=== PATIENT | female | born 1965 | race Caucasian/White ===

== ENCOUNTER → 2020-05-17 17:43 | Outpatient (CLI) | payer MEDICARE, SELFPAY ==
[2020-05-19 13:08] LABS: Hep A Ab, IgM Negative (Negative); Hepatitis B Core Antibody IgM Negative (Negative); Hepatitis B Surface Antigen Negative (Negative)
[2020-05-19 13:11] LABS: Hepatitis C Antibody 0.1 s/co ratio (0.0-0.9)
== END ==
PROVIDERS: Visit Provider Family Medicine
DX: R53.83 Other fatigue (principal)
CPT/HCPCS: 80074

== ENCOUNTER → 2020-06-29 14:20 | Outpatient (CLI) | payer MEDICAID, SELFPAY ==
--- NOTE | 2020-06-29 14:37 | ECG_ITS ---
APPROVED REPORT Exam: Resting ECG HR:66 bpm ECG Measurements Heart Rate 66 AXES VA 120 P 32 QRSd 72 QRS 27 QT 374 T 33 QTc 392 Conclusion Normal sinus rhythm Normal ECG Electronically signed by : Gucci Chery, 07/05/2020 11:39:41
--- NOTE | 2020-06-29 14:40 | XR_ITS ---
PROCEDURE: XR CHEST 2V CLINICAL HISTORY: TOBACCO USER, COUGH COMPARISON: No exams were available for comparison FINDINGS: The cardiomediastinal silhouette and pulmonary vascularity are within normal limits. The lungs are clear without infiltrates, suspicious nodules, or pleural effusions. There is minimal wedge configuration of T6 and T8 which is age indeterminate. Please correlate clinically. IMPRESSION: Minimal wedging of T6 and T8 age indeterminate otherwise negative Dictated by: Mark Queen MD 06/29/2020 14:54 Mark Queen MD in OV 06/29/2020 14:54
[2020-06-29 15:02] LABS: Chloride 104 mmol/L (98-107); Potassium 4.6 mmoL/L (3.5-5.1); Sodium 138 mmol/L (136-145)
[2020-06-29 15:05] LABS: Alanine Aminotransferase 18 U/L (12-78); Albumin Level 4.1 g/dl (3.5-5.0); Albumin/Globulin Ratio 1.4 (1.1-1.8); Alkaline Phosphatase 109 U/L (38-126); Anion Gap 7.6 mEq/L (5-15); Aspartate Amino Transferase 21 U/L (14-36); Bilirubin,Total 0.5 mg/dl (0.2-1.3); Blood Urea Nitrogen 12 mg/dl (7-17); Carbon Dioxide 31 mmol/L (22.0-30.0); Estimated Glomerular Filt Rate 51 ml/min (>60); GFR (African American) 62 ML/MIN (>60); Total Protein,Serum 7.1 g/dl (6.3-8.2)
[2020-06-29 15:06] LABS: Calcium 9.9 mg/dl (8.4-10.2); Glucose 106 mg/dl (74-100)
[2020-06-29 15:08] LABS: Basophils # 0.1 K/mm3 (0-0.2); Basophils % 1.3 % (0.1-2.0); Eosinophils # 0.2 K/mm3 (0.0-0.4); Eosinophils % 3.1 % (0.1-12.0); Hematocrit 51.4 % (37.0-47.0); Hemoglobin 17.2 g/dL (12.2-16.2); Lymphocytes # 1.5 K/mm3 (0.7-4.5); Lymphocytes % 32.1 % (10-50); Mean Corpuscular HGB Conc 33.5 g/dL (31.8-35.4); Mean Corpuscular Hemoglobin 30.1 pg (27.0-31.2); Mean Corpuscular Volume 89.9 fl (81-99); Mean Platelet Volume 7.3 fl (7.4-10.4); Monocytes # 0.2 K/mm3 (0.1-1.0); Monocytes % 4.6 % (1.7-9.3); Neutrophils # 2.8 K/mm3 (1.8-7.8); Neutrophils % 58.9 % (37.0-80.0); Platelet Count 310 K/mm3 (142-424); Red Blood Count 5.72 M/mm3 (4.20-5.40); Red Cell Distribution Width 13.3 % (11.5-17.5); White Blood Count 4.8 K/mm3 (4.8-10.8)
[2020-06-29 16:06] LABS: Coronavirus 19 IgG Antibody Negative (Negative); Coronavirus 19 IgM Antibody Negative (Negative)
== END ==
PROVIDERS: Visit Provider Orthopaedic Surgery
DX: Z01.818 Encounter for other preprocedural examination (principal); M25.512 Pain in left shoulder; M75.112 Incomplete rotator cuff tear or rupture of left shoulder, not specified as traumatic; M75.52 Bursitis of left shoulder; M75.42 Impingement syndrome of left shoulder; M67.912 Unspecified disorder of synovium and tendon, left shoulder; M75.22 Bicipital tendinitis, left shoulder; M19.012 Primary osteoarthritis, left shoulder
CPT/HCPCS: 36415; 71046; 80053; 85025; 86328; 93005

== ENCOUNTER 2020-07-01 07:31 | Day surgery (SDC) | payer MEDICAID, SELFPAY ==
[2020-06-26 11:02] VITALS: BMI 32.4
[2020-07-01] VITALS (11 sets, daily range): BP systolic 120–159; BP diastolic 70–90; PULSE 67–89; RESP 17–18; TEMP 36.1–38; O2SAT 94–99
--- NOTE | 2020-07-01 08:17 | HMH.ANESCL ---
[facility] Anesthesia Checklist - Patient Identification Patient Identification: Arm Band, Verbal (Name & ) - Structural Data Admitted From: Home Planned Operative Procedure/s: l shoulerscope Consent for Planned Operative Procedure(s) Verified: Yes Verified Documents: History and Physical - NPO Status Verified Time NPO: 00:00 - Additional verifications Patient : No Anesthesia Reactions: No Hx Blood Transfusions: No Blood Transfusion Reaction: No Cephalosporin Allergy: No Previous Colonoscopy: No - Cardiovascular Assessment Heart Sounds: S1 & S2 Pulse Strength: Baseline Pulse Rhythm: Regular Peripheral Edema: No - Airway Assessment C-Spine Mobility Assessed: Yes TMJ Mobility Assessed: Yes Dentition: Partials - Neurological Assessment Level of Consciousness: Awake, Alert, Appropriate Hx Seizures: No Numbness or tingling in extremities: No - Anesthesia Plan Anesthesia Risk discussed: Yes Anesthesia Plan: Patient unable to respond/answer ASA Class: III Anesthesia Type: [facility] History I have reviewed the patient's past medical history: Yes Medical History: Reports:: Cancer, Chronic Obstructive Pulmonary Disease (COPD), Gastroesophageal Reflux Disease(GERD) Denies:: Diabetes Mellitus Type 1, Diabetes Mellitus Type 2, Internal Pacemaker, MRSA, Seizures *Have you ever received a pneumonia vaccine?: No *Have you received a flu vaccine this season?: No Other Medical History: Reports: Arthritis. Denies: Blood Transfusion Reaction Anesthesia experience/problems:: ponv Laterality Cases: Bilateral: Tonsillectomy Other Surgeries: Yes: Cancer Surgery (KIDNEY REMOVAL), Cholecystectomy, Hysterectomy-Total. No: Pacemaker Amputation: No Fractures: No - *Social History Last grade of school completed: GED Smoking Status: Current every day smoker Tobacco Type: cigarettes # Packs/Day (cigarettes): 2 Alcohol Intake: never Substance Use Type: denies use *Occupational Status:: unemployed Housing: house Household Members: spouse, family *Travel in the last 8 weeks: None Family Hx:: No significant family history
--- NOTE | 2020-07-01 10:59 | SUR.OPER ---
1059-family updated at this time
[2020-07-01 13:07] LABS: Microscopic,Cath URINE MICROSCOPIC (MICROSCOPIC)
[2020-07-01 13:08] LABS: Appearance,Urine/Cath CLEAR (Clear); Bilirubin,Cath Negative (Negative); Blood, Urine/Cath Negative (Negative); Color,Urine/Cath YELLOW (Yellow); Glucose,Urine/Cath (UA) Negative (Negative); Ketones,Urine/Cath Negative (Negative); Leukocyte Esterase,Cath Negative (Negative); Nitrate,Cath Negative (Negative); PH,Urine/Cath 5.5 (5.0-8.5); Protein,Urine/Cath Negative (Negative); Specific Gravity, Urine/Cath 1.025 (1.005-1.030); Urobilinogen,Cath 0.2 EU/dl (0.2)
--- NOTE | 2020-07-01 14:06 | P.PN_ITS ---
[facility] Anesthesia Record Part I Intake, IV Amount: 1,400 Estimated blood loss (mL): 50 Urine output (mL): 300 Blood Products used (#): none Blood Pressure: 132/73 SaO2: 96 Pulse Rate: 81 Respiratory Rate: 17 Temperature: 97.5 F Patient is:: Awake, Drowsy, Stable Stable to PACU at:: 14:00
[2020-07-01 14:16] LABS: RBC,Urine/Cath Occasional # /hpf (0-3); Squamous Epithelial Ur./Cath Occasional #/hpf (0-5); WBC,Urine/Cath Occasional #/hpf (0-3)
--- NOTE | 2020-07-01 15:37 | HMH.OPNOTE ---
Date of procedure: 07/01/20 Pre-op Diagnosis:: 1. Partial-thickness rotator cuff tear, left shoulder 2. Biceps tendinopathy, left shoulder 3. Subacromial bursitis, left shoulder 4. Subacromial impingement, left shoulder 5. Degenerative labrum and synovitis, left glenohumeral joint 6. Acromioclavicular joint arthritis, left shoulder Post-op Diagnosis:: 1. Rotator cuff tear, left [id number] partial thickness tear of the supraspinatus and infraspinatus. 2. Biceps tendinopathy, left shoulder 3. Subacromial bursitis, left shoulder 4. Subacromial impingement, left shoulder 5. Degenerative arthritis and synovitis, left glenohumeral joint 6. Acromioclavicular joint arthritis, left shoulder Procedure performed:: 1. Arthroscopic rotator cuff repair, left shoulder. 2. Arthroscopic subacromial decompression with subacromial and subdeltoid bursectomy and bony acromioplasty, left shoulder. 3. Arthroscopic glenohumeral joint debridement, extensive, left shoulder. 4. Arthroscopic biceps tenotomy, left shoulder. 5. Arthroscopic distal clavicle excision, left shoulder Surgeon:: Alek Oneil MD Physical Therapy Technician(s):: Deborah Mancini PLASTER WHITTLER:: Tera Martinez Anesthesia: GETA, regional (Interscalene nerve block) Estimated blood loss (mL): 10 Clinical Note:: Patient is a 55-year-old [id number] female with history of pain and disability of her left shoulder for about 2 years. Her symptoms started insidiously and gradually progressed. Her symptoms gradually worsened over the period of time and continued to be troublesome during her daily activities. She had weakness and difficulty with the use of the arm. She localizes the pain to anterior and lateral aspect of the shoulder with radiation into the upper arm but not below the elbow. She also reports occasional radiation up towards the cervical spine and back of the shoulder. She rates her pain a 5 out of 10 at rest and a 7 out of 10 at its worst. She states certain movements including rotations, laying on the left side, over head reaching and lifting aggravates her pain. She reports sleep disturbance secondary to shoulder pain. She also reports some shoulder stiffness and weakness. She was previously seen by her pain management physician, Dr. Kim, as well as by orthopedic surgeon, Dr Flores at [facility]. She says she had about 4 local steroid injections in total over the last year the last one being about couple of months ago. She reports very little improvement with her her symptoms following these injections. She also did physical therapy on 2 separate occasions again without significant relief. She has also tried rest, icing, NSAIDs and pain medication without significant pain relief. She has history of chronic back pain and is on long-term pain medication from a pain clinic in [place]. She takes hydrocodone/acetaminophen 5/325 1 tablet 4 times a day, gabapentin 400 mg 3 times a day and cyclobenzaprine 10 mg 3 times a day. She had a left nephrectomy about 10 years ago for cancer. She does not have any metastasis or recurrence. She is a chronic smoker for over 30 years, and smokes about 1 and half packs a day. She does not work secondary to disability and has history of COPD and GERD. She is not a known diabetic. Preoperative evaluation was consistent with the above mentioned diagnosis. Her shoulder MRI scan performed at an outside facility showed- 1. Multifocal partial-thickness tearing of the superior rotator cuff, which most notably includes a 1.5 x 1 cm low to moderate grade tear extending from the conjoined segment to the mid infraspinatus tendon. No high-grade partial/full-thickness retracted tear. 2. Mild glenohumeral and AC joint osteoarthritis. 3. Mild subacromial/subdeltoid bursitis. After discussion of the risks and benefits of the surgical versus nonsurgical management, he elected to proceed with surgical remediation. Please refer to my office note for full details. Operative fi
--- NOTE | 2020-07-02 13:46 | P.PN_ITS ---
[facility] Anesthesia Record Part II Discharge Time: 14:30 Destination: Surgical Day Care (OP Surgery) PACU nurse assessment reviewed?: Yes Patient Condition:: Good Anesthesia Complications:: None Swallowing reflex intact?: Yes Cyanosis?: No Blood Pressure: 159/85 Pulse Rate: 86 Temperature: 97.5 F Mental Status: Alert & Oriented Pain level:: 0 Nausea and/or vomitting:: None Intake, IV Amount: 0
[2020-07-02 13:48] VITALS: BP 159/85; PULSE 86; TEMP 36.4
== END 2020-07-01 15:16 | disposition home or self-care (01) ==
LOC: OR 07:33
PROVIDERS: PCP Family Medicine; Visit Provider Orthopaedic Surgery
PROC: (CPT 29805; principal; 2020-07-01 09:00)
DX: M75.112 Incomplete rotator cuff tear or rupture of left shoulder, not specified as traumatic (principal); M75.52 Bursitis of left shoulder; M75.22 Bicipital tendinitis, left shoulder; M75.42 Impingement syndrome of left shoulder; M19.012 Primary osteoarthritis, left shoulder; Z72.0 Tobacco use; J44.9 Chronic obstructive pulmonary disease, unspecified; Z85.528 Personal history of other malignant neoplasm of kidney; Z90.5 Acquired absence of kidney
CPT/HCPCS: 29827; 29828; 29826; 81001; 96374; C1713; J2405

== ENCOUNTER → 2021-12-24 12:55 | Outpatient (CLI) | payer MEDICAID, SELFPAY ==
--- NOTE | 2021-12-24 13:05 | XR_ITS ---
FINAL REPORT CLINICAL HISTORY: shoulder pain FINDINGS: RIGHT SHOULDER Three views demonstrate no acute fracture or dislocation. There are mild degenerative changes of the acromioclavicular joint. The visualized bony structures are well aligned. No soft tissue abnormality is seen. IMPRESSION: Mild degenerative change of the acromioclavicular joint. Reviewed, Interpreted and Dictated by Brenton Alvares III, MD Transcribed by Lia Mulligan Authenticated by Brenton Alvares III, MD on 12/24/2021 03:26:33 PM [facility]
== END ==
PROVIDERS: PCP Family Medicine; Visit Provider Orthopaedic Surgery
DX: M25.511 Pain in right shoulder (principal)
CPT/HCPCS: 73030

== ENCOUNTER → 2022-02-20 09:48 | Outpatient (CLI) | payer MEDICAID, SELFPAY ==
--- NOTE | 2022-02-20 09:48 | CT_ITS ---
FINAL REPORT TECHNIQUE: Thin section axial CT with IV contrast supplemented with multiplanar reconstruction under CT angiogram protocol. 3-D reconstructions were performed. This study was performed with techniques to keep radiation doses as low as reasonably achievable (ALARA). Individualized dose reduction techniques using automated exposure control or adjustment of mA and/or kV according to the patient''s size were employed. CLINICAL HISTORY: heaadache, mood swings, pt has had kidney cancer, pt states on scan years ago had tumor on pituitary and aneurysm?? FINDINGS: The distal vertebral, basilar and distal internal carotid arteries have an unremarkable appearance. No aneurysm is seen. Major intracranial vessels are patent without significant stenosis. IMPRESSION: No evidence of aneurysm. Reviewed, Interpreted and Dictated by Brenton Alvares III, MD Transcribed by Kirstin Esteves Authenticated and [facility]
[2022-02-20 10:11] LABS: Blood Urea Nitrogen 13 mg/dl (7-17); Estimated Glomerular Filt Rate 51 ml/min (>60); GFR (African American) 62 ML/MIN (>60)
== END ==
PROVIDERS: PCP Family Medicine; Visit Provider Family Medicine
DX: R51.9 Headache, unspecified (principal); G89.29 Other chronic pain; I72.9 Aneurysm of unspecified site
CPT/HCPCS: 36415; 70496; 82565; 84520; Q9967

== ENCOUNTER → 2023-04-09 23:16 | Outpatient (CLI) | payer MEDICAID, SELFPAY ==
[2023-04-09 18:31] LABS: Basophils % 0.5 % (0.1-2.0); Eosinophils # 0.2 K/mm3 (0.0-0.4); Hematocrit 40.8 % (37.0-47.0); Hemoglobin 13.1 g/dL (12.2-16.2); Lymphocytes # 2.3 K/mm3 (0.7-4.5); Lymphocytes % 31.7 % (10-50); Mean Corpuscular HGB Conc 32.1 g/dL (31.8-35.4); Mean Corpuscular Hemoglobin 25.1 pg (27.0-31.2); Mean Corpuscular Volume 78.1 fl (81-99); Mean Platelet Volume 8.4 fl (7.4-10.4); Monocytes # 0.4 K/mm3 (0.1-1.0); Monocytes % 4.8 % (1.7-9.3); Neutrophils # 4.4 K/mm3 (1.8-7.8); Neutrophils % 60.9 % (37.0-80.0); Platelet Count 351 K/mm3 (142-424); Red Blood Count 5.22 M/mm3 (4.20-5.40); Red Cell Distribution Width 17.4 % (11.5-17.5); White Blood Count 7.2 K/mm3 (4.8-10.8)
[2023-04-09 19:04] LABS: Alanine Aminotransferase 22 U/L (12-78); Albumin Level 3.9 g/dl (3.5-5.0); Albumin/Globulin Ratio 1.3 (1.1-1.8); Alkaline Phosphatase 154 U/L (38-126); Aspartate Amino Transferase 24 U/L (14-36); Bilirubin,Total 0.2 mg/dl (0.2-1.3); Blood Urea Nitrogen 9 mg/dl (7-17); Calcium 9.3 mg/dl (8.4-10.2); Carbon Dioxide 25 mmol/L (22.0-30.0); Chloride 104 mmol/L (98-107); Chol/HDL Ratio 5.7 (1-3.5); Cholesterol 206 mg/dl (140-200); Estimated Glomerular Filt Rate 57 ml/min (>60); GFR (African American) 69 ML/MIN (>60); Globulin 2.9 g/dL (1.3-3.2); Glucose 129 mg/dl (74-100); HDL Cholesterol 36 mg/dl (40-60); Sodium 138 mmol/L (136-145); Total Protein,Serum 6.8 g/dl (6.3-8.2); Triglycerides 225 mg/dl (30-150); VLDL Cholesterol 45 mg/dL (0-40)
[2023-04-09 19:15] LABS: Direct LDL Cholesterol 128.63 mg/dL (100-129)
[2023-04-09 20:15] LABS: Iron 38 ug/dL (37-170)
[2023-04-09 20:40] LABS: Total Iron Binding Capacity 414 ug/dL (265-497)
[2023-04-09 20:47] LABS: Thyroid Stimulating Hormone 0.95 uIU/mL (0.465-4.68)
[2023-04-19 20:02] LABS: 1,25 Dihydroxy Vitamin D 41 pg/mL (.); 1,25-Dihydroxy, Vitamin D-2 <10 pg/mL (.); 1,25-Dihydroxy, Vitamin D-3 31 pg/mL (.)
== END ==
PROVIDERS: PCP Family Medicine; Visit Provider Family Medicine
DX: M54.2 Cervicalgia (principal); E61.1 Iron deficiency; E66.9 Obesity, unspecified; Z68.35 Body mass index [BMI] 35.0-35.9, adult; Z79.899 Other long term (current) drug therapy
CPT/HCPCS: 80053; 80061; 82652; 83036; 83540; 83550; 84443; 85025

== ENCOUNTER → 2023-05-21 14:30 | Outpatient (CLI) | payer MEDICAID, SELFPAY ==
[2023-05-21 18:34] LABS: Thyroid Stimulating Hormone 0.63 uIU/mL (0.465-4.68)
[2023-05-21 18:53] LABS: Vitamin B12 346 pg/mL (239-931)
[2023-05-31 15:58] LABS: 1,25 Dihydroxy Vitamin D 36 pg/mL (.); 1,25-Dihydroxy, Vitamin D-2 <10 pg/mL (.); 1,25-Dihydroxy, Vitamin D-3 36 pg/mL (.)
== END ==
PROVIDERS: PCP Family Medicine; Visit Provider Family Medicine
DX: H35.30 Unspecified macular degeneration (principal); E66.9 Obesity, unspecified; Z68.36 Body mass index [BMI] 36.0-36.9, adult; Z79.899 Other long term (current) drug therapy
CPT/HCPCS: 82607; 82652; 84443

== ENCOUNTER → 2023-06-07 10:48 | Outpatient (CLI) | payer MEDICAID, SELFPAY ==
--- NOTE | 2023-06-07 10:49 | MR_ITS ---
FINAL REPORT CLINICAL HISTORY: Loss of balance 19ML PROHANCE COMPARISON: None FINDINGS: Multiplanar MR imaging of the brain was performed without and with contrast. There is motion on many sequences which somewhat limits overall image quality. There is mild age-appropriate atrophy. Scattered foci of increased T2 signal are seen in the cerebral white matter that have a nonspecific appearance but likely represent mild chronic ischemic/gliotic changes. There is no evidence of intracranial hemorrhage or mass. No abnormal ventricular dilatation is identified. There is no evidence of shift of the midline structures. No abnormal extra-axial fluid collection is seen. No area of abnormal restricted diffusion is identified. The posterior fossa and brainstem have an unremarkable appearance. No abnormal contrast enhancement is seen. Normal major vessel vascular flow voids are seen. IMPRESSION: Mild atrophy and chronic ischemic/gliotic changes. No acute intracranial abnormality. Reviewed, Interpreted and Dictated by Brenton Alvares III, MD Transcribed by Moraima Bah Authenticated and . [facility]
[2023-06-07 11:35] LABS: Blood Urea Nitrogen 7 mg/dl (7-17); Estimated Glomerular Filt Rate 57 ml/min (>60); GFR (African American) 69 ML/MIN (>60)
== END ==
PROVIDERS: PCP Family Medicine; Visit Provider Family Medicine
DX: R26.89 Other abnormalities of gait and mobility (principal)
CPT/HCPCS: 36415; 70553; 82565; 84520; A9576

== ENCOUNTER → 2023-07-28 23:54 | Outpatient (CLI) | payer MEDICAID, SELFPAY ==
[2023-07-28 18:42] LABS: Basophils # 0.1 K/mm3 (0-0.2); Basophils % 0.9 % (0.1-2.0); Eosinophils # 0.2 K/mm3 (0.0-0.4); Eosinophils % 2.5 % (0.1-12.0); Hematocrit 44.4 % (37.0-47.0); Hemoglobin 14.4 g/dL (12.2-16.2); Lymphocytes # 2.3 K/mm3 (0.7-4.5); Lymphocytes % 32.6 % (10-50); Mean Corpuscular HGB Conc 32.5 g/dL (31.8-35.4); Mean Corpuscular Hemoglobin 29.1 pg (27.0-31.2); Mean Corpuscular Volume 89.6 fl (81-99); Mean Platelet Volume 8.6 fl (7.4-10.4); Monocytes # 0.4 K/mm3 (0.1-1.0); Monocytes % 5.4 % (1.7-9.3); Neutrophils # 4.1 K/mm3 (1.8-7.8); Neutrophils % 58.6 % (37.0-80.0); Platelet Count 356 K/mm3 (142-424); Red Blood Count 4.95 M/mm3 (4.20-5.40); Red Cell Distribution Width 16.1 % (11.5-17.5)
[2023-07-28 19:01] LABS: Uric Acid 3.3 mg/dl (2.5-6.2)
[2023-07-28 19:31] LABS: Erythrocyte Sedimentation Rate 15 mm/hr (0-30)
[2023-07-28 21:45] LABS: Alanine Aminotransferase 28 U/L (12-78); Albumin Level 4.1 g/dl (3.5-5.0); Albumin/Globulin Ratio 1.3 (1.1-1.8); Alkaline Phosphatase 221 U/L (38-126); Anion Gap 12.1 mEq/L (5-15); Aspartate Amino Transferase 32 U/L (14-36); Bilirubin,Total 0.4 mg/dl (0.2-1.3); Blood Urea Nitrogen 7 mg/dl (7-17); Carbon Dioxide 25 mmol/L (22.0-30.0); Chloride 103 mmol/L (98-107); Estimated Glomerular Filt Rate 57 ml/min (>60); GFR (African American) 69 ML/MIN (>60); Globulin 3.1 g/dL (1.3-3.2); Glucose 100 mg/dl (74-100); Potassium 4.1 mmoL/L (3.5-5.1); Sodium 136 mmol/L (136-145); Total Protein,Serum 7.2 g/dl (6.3-8.2)
[2023-07-30 14:10] LABS: RA Latex Turbid. 17.9 IU/mL (<14.0)
[2023-08-02 08:17] LABS: Antinuclear Antibodies, IFA Negative (.)
== END ==
PROVIDERS: PCP Family Medicine; Visit Provider Family Medicine
DX: R53.1 Weakness (principal); Z90.5 Acquired absence of kidney
CPT/HCPCS: 80053; 84550; 85025; 85651; 86038; 86431

== ENCOUNTER → 2023-08-13 08:57 | Outpatient (CLI) | payer MEDICAID, SELFPAY ==
[2023-08-13 18:38] LABS: Barbiturates Screen,Urine Negative ng/ml (<200)
[2023-08-13 18:39] LABS: Amphetamine/Metha Screen,Urine Negative ng/ml (<1000)
[2023-08-13 18:40] LABS: Benzodiazepines Screen,Urine Positive ng/ml (<200); Cannabinoid Screen,Urine Negative ng/ml (<50)
[2023-08-13 18:41] LABS: Cocaine Screen,Urine Negative ng/ml (<300); Methadone Screen,Urine Negative ng/ml (<300)
[2023-08-13 18:42] LABS: Opiate Screen,Urine Negative ng/ml (<300)
[2023-08-13 18:43] LABS: Phencyclidine Screen,Urine Negative ng/ml (<25)
== END ==
PROVIDERS: PCP Family Medicine; Visit Provider Family Medicine
DX: Z79.899 Other long term (current) drug therapy (principal)
CPT/HCPCS: 80305

== ENCOUNTER → 2023-08-16 09:20 | Outpatient (CLI) | payer MEDICAID, SELFPAY ==
--- NOTE | 2023-08-16 09:20 | CT_ITS ---
FINAL REPORT TECHNIQUE: Postcontrast axial images of the chest were performed in a CTA protocol. This study was performed with techniques to keep radiation doses as low as reasonably achievable, (ALARA). Individualized dose reduction technique using automated exposure control or adjustment of mA and/or kV according to the patient's size were employed. CLINICAL HISTORY: Syncope, evaluate aortic arch, left subclavian and vertebral. FINDINGS: Thyroid is homogeneous. The heart is normal in size. No adenopathy is identified. No pleural or pericardial effusion is identified. The thoracic aorta is normal in caliber with no focal aneurysm or dissection identified. Aortic arch is normal in caliber. There is no filling defect to suggest pulmonary embolism. No lung infiltrate or mass is identified. The left kidney is not identified and is likely surgically absent. Limited imaging of the upper abdomen demonstrates a small, indeterminate nodule in the left adrenal gland measuring 7 mm. IMPRESSION: No evidence for PE, aneurysm or dissection. Indeterminate 7 mm left adrenal nodule. Reviewed, Interpreted and Dictated by Elpidio Posada MD Transcribed by Nell Perrin Authenticated and [facility]
== END ==
PROVIDERS: PCP Family Medicine; Visit Provider Family Medicine
DX: G45.8 Other transient cerebral ischemic attacks and related syndromes (principal); R55 Syncope and collapse
CPT/HCPCS: 71275; Q9967

== ENCOUNTER 2024-03-06 10:28 | Outpatient (CLI) | payer MEDICAID, SELFPAY ==
[2024-03-06 20:03] LABS: Basophils # 0.1 K/mm3 (0-0.2); Eosinophils # 0.1 K/mm3 (0.0-0.4); Eosinophils % 1.9 % (0.1-12.0); Hemoglobin 14.8 g/dL (12.2-16.2); Lymphocytes # 2.3 K/mm3 (0.7-4.5); Lymphocytes % 33.1 % (10-50); Mean Corpuscular HGB Conc 32.8 g/dL (31.8-35.4); Mean Corpuscular Hemoglobin 29.7 pg (27.0-31.2); Mean Corpuscular Volume 90.7 fl (81-99); Mean Platelet Volume 8.2 fl (7.4-10.4); Monocytes # 0.4 K/mm3 (0.1-1.0); Monocytes % 5.1 % (1.7-9.3); Neutrophils # 4.2 K/mm3 (1.8-7.8); Neutrophils % 58.9 % (37.0-80.0); Platelet Count 325 K/mm3 (142-424); Red Blood Count 4.96 M/mm3 (4.20-5.40); White Blood Count 7.1 K/mm3 (4.8-10.8)
[2024-03-06 20:37] LABS: Hemoglobin A1C 5.8 % (4.0-6.0)
[2024-03-06 20:38] LABS: Alanine Aminotransferase 21 U/L (12-78); Albumin Level 3.7 g/dl (3.5-5.0); Albumin/Globulin Ratio 1.2 (1.1-1.8); Alkaline Phosphatase 176 U/L (38-126); Anion Gap 10.9 mEq/L (5-15); Aspartate Amino Transferase 27 U/L (14-36); Bilirubin,Total 0.5 mg/dl (0.2-1.3); Blood Urea Nitrogen 11 mg/dl (7-17); Calcium 9.4 mg/dl (8.4-10.2); Carbon Dioxide 29 mmol/L (22.0-30.0); Chloride 99 mmol/L (98-107); Estimated Glomerular Filt Rate 51 ml/min (>60); GFR (African American) 62 ML/MIN (>60); Globulin 3.1 g/dL (1.3-3.2); Glucose 97 mg/dl (74-100); Potassium 3.9 mmoL/L (3.5-5.1); Sodium 135 mmol/L (136-145); Total Protein,Serum 6.8 g/dl (6.3-8.2)
[2024-03-06 20:55] LABS: T4 (Thyroxine) 13.1 ug/dl (5.53-11.0)
[2024-03-06 21:09] LABS: Thyroid Stimulating Hormone 0.08 uIU/mL (0.465-4.68)
== END 2024-03-06 23:59 | disposition home or self-care (01) ==
LOC: LAB.DROPOF 03-07 10:29
PROVIDERS: PCP Family Medicine; Visit Provider Family Medicine
DX: R53.83 Other fatigue (principal); E11.9 Type 2 diabetes mellitus without complications; Z13.29 Encounter for screening for other suspected endocrine disorder
CPT/HCPCS: 80050; 80053; 83036; 84436; 84443; 85025

== ENCOUNTER 2024-04-18 07:58 | Outpatient (CLI) | payer MEDICAID, SELFPAY ==
--- NOTE | 2024-04-18 07:58 | US_ITS ---
FINAL REPORT CLINICAL HISTORY: thyroid nodule FINDINGS: Sonographic images of the thyroid gland were obtained. The right thyroid lobe measures 43 mm. in length. The left thyroid lobe measures 45 mm. in length. The thyroid isthmus measures 5 mm. The echogenicity is normal. Multiple bilateral thyroid nodules are seen. The 2 largest nodules are seen in the left thyroid lobe measuring up to 15 mm each. They are cystic and solid and hypoechoic, consistent with TI-RADS 3 nodules. Multiple other smaller nodules are seen bilaterally. IMPRESSION: Multiple bilateral thyroid nodules as described measuring up to 15 mm. Based upon TI-RADS criteria, no biopsy is indicated at this time. Recommend follow-up ultrasound in 6-12 months to evaluate for stability. Authenticated and [facility]
[2024-04-18 10:34] LABS: Free T4 (Free Thyroxine) 1.41 ng/dl (0.78-2.19)
[2024-04-18 10:50] LABS: Thyroid Stimulating Hormone 0.52 uIU/mL (0.465-4.68)
[2024-04-19 10:14] LABS: Thyroid Peroxidase Antibodies <9 IU/mL (0-34)
== END 2024-04-18 23:59 | disposition home or self-care (01) ==
LOC: RAD 07:58
PROVIDERS: PCP Family Medicine; Visit Provider Nurse Practitioner
DX: E04.1 Nontoxic single thyroid nodule (principal)
CPT/HCPCS: 36415; 76536; 84439; 84443; 86376

== ENCOUNTER 2024-11-01 14:41 | Outpatient (CLI) | payer MEDICAID, MEDICARE, SELFPAY ==
[2024-11-01 20:56] LABS: HIV Combo NEGATIVE (Negative)
[2024-11-01 21:20] LABS: Hepatitis C Ab Qual. W/ RFX NEGATIVE (Negative)
== END 2024-11-01 23:59 | disposition home or self-care (01) ==
LOC: LAB.DROPOF 11-02 15:27
PROVIDERS: PCP Family Medicine; Visit Provider Family Medicine
DX: Z11.59 Encounter for screening for other viral diseases (principal)
CPT/HCPCS: 86803; 87389

== ENCOUNTER 2024-11-27 10:09 | Outpatient (CLI) | payer MEDICARE, SELFPAY ==
--- NOTE | 2024-11-27 10:09 | CT_ITS ---
FINAL REPORT TECHNIQUE: Thin section axial images were obtained from the thoracic inlet through the upper abdomen after intravenous contrast injection. Reconstruction images were obtained from the axial data. Exam was performed using dose reduction technique. This study was performed with techniques to keep radiation doses as low as reasonably achievable (ALARA). Individualized dose reduction techniques using automated exposure control or adjustment of mA and/or kV according to the patient's size were employed. CLINICAL HISTORY: Blood Clot COMPARISON: 08/16/2023 FINDINGS: Note is made of small bilateral thyroid nodules which are stable when compared to the prior exam. There is no hilar or axillary lymphadenopathy. There is mild prominence of right paratracheal and AP window nodes, stable. There is no pleural or pericardial effusion. There is a tiny left lower lobe subpleural nodule best seen on image #64, stable. There are new ground glass and airspace opacities in the superior segment of the left lower lobe and the anterior segment of the left upper lobe, which may be infectious or inflammatory. No acute osseous abnormality. IMPRESSION: New ground glass and airspace opacities in the superior segment of the left lower lobe and anterior left upper lobe, infectious or inflammatory. Reviewed, Interpreted and Dictated by Yadira Knutson MD Transcribed by Moraima Bah Authenticated and [facility]
--- NOTE | 2024-11-27 10:09 | US_ITS ---
FINAL REPORT TECHNIQUE: Sonographic images of the thyroid gland were obtained in the longitudinal and transverse planes. CLINICAL HISTORY: F/U Thyroid Nodule COMPARISON: 05/05/2024 FINDINGS: The right lobe measures 15 x 50 x 21 mm. The right lobe is homogeneous. Several tiny colloid cyst on the right. Previously seen 6 mm hypoechoic nodule is not visualized on this exam. The left lobe measures 21 x 55 x 23 mm. The left lobe is homogeneous. 2 mixed cystic and solid nodules not significantly changed in size given differences in technique. Largest measures 17 mm, TR 3. There is also an isoechoic 10 mm nodule which is unchanged. Several additional subcentimeter hypoechoic nodules are stable. The isthmus measures 5 mm. This is normal. IMPRESSION: Stable TR 3 left thyroid nodules. Continued follow-up recommended per TI-RADS criteria. Additional nodules not significantly changed or not identified on today's exam. Reviewed, Interpreted and Dictated by Yadira Knutson MD Transcribed by Deborah Fung Authenticated and . [facility]
--- NOTE | 2024-11-27 10:09 | CT_ITS ---
FINAL REPORT TECHNIQUE: Thin section axial images are obtained through the abdomen and pelvis after intravenous contrast. Reconstruction images were obtained from the axial data. Exam was performed using dose reduction techniques. This study was performed with techniques to keep radiation doses as low as reasonably achievable (ALARA). Individualized dose reduction techniques using automated exposure control or adjustment of mA and/or kV according to the patient's size were employed. CLINICAL HISTORY: Abdominal Pain COMPARISON: None FINDINGS: LIVER: There are multiple small hypodense liver lesions present, that likely represent hepatic cysts. GALLBLADDER/BILIARY SYSTEM: The gallbladder is surgically absent. No biliary dilatation. SPLEEN: Unremarkable. PANCREAS: Unremarkable. ADRENALS: Bilateral adrenal nodules are identified, on the right measuring 10 mm in size and on the left 14 mm. These are not adenomatous by strict criteria. KIDNEYS/URETERS/BLADDER: There is mild right hydronephrosis without hydroureter or an obstructing stone seen. No renal masses seen in the right kidney. The left kidney is either absent or extremely atrophic. There is mild wall thickening of the bladder, that may represent cystitis. GI TRACT: A small hiatal hernia is present. No small bowel obstruction or dilatation. The appendix is not visualized, however there are no secondary signs of inflammatory change. There are mild fluid filled small bowel levels with mild wall thickening proximally, with a small amount of fluid in the distal proximal colon that may represent mild changes of enterocolitis. PELVIC ORGANS: Unremarkable for age. LYMPH NODES/RETROPERITONEUM/MESENTERY: No lymphadenopathy. No abdominal aortic aneurysm. ABDOMINAL WALL: The abdominal wall is intact. FREE FLUID: No ascites. BONES: No acute osseous abnormality. IMPRESSION: Mild right hydronephrosis without hydroureter or obstructing stone. Mild wall thickening of the bladder that may represent cystitis. Fluid-filled small bowel with mild wall thickening in the proximal small bowel, as well as mild fluid in the distal proximal colon, that may represent mild changes of enterocolitis. Reviewed, Interpreted and Dictated by Yadira Knutson MD Transcribed by Moraima Bah Authenticated and [facility]
[2024-11-27 11:03] LABS: Blood Urea Nitrogen 12 mg/dl (7-17); Estimated Glomerular Filt Rate 46 ml/min (>60); GFR (African American) 55 ML/MIN (>60)
[2024-11-27] MEDS: SODIUM CHLORIDE 0.9% 10ML SYR (RAD ONLY) 10 ML IV (11:24)
[2024-11-27] MEDS: IOPAMIDOL-370 (76%);100ML BOTTLE 75 ML IV (11:24)
== END 2024-11-27 23:59 | disposition home or self-care (01) ==
LOC: RAD 10:09
PROVIDERS: PCP Family Medicine; Visit Provider Family Medicine
DX: E04.1 Nontoxic single thyroid nodule (principal); R10.9 Unspecified abdominal pain; N13.30 Unspecified hydronephrosis; Z86.718 Personal history of other venous thrombosis and embolism
CPT/HCPCS: 36415; 71260; 74177; 76536; 82565; 84520; Q9967

== ENCOUNTER 2025-01-31 20:56 | Outpatient (CLI) | payer MEDICARE, SELFPAY ==
[2025-01-31 22:25] LABS: Microscopic, Urine URINE MICROSCOPIC (MICROSCOPIC)
[2025-01-31 22:39] LABS: Appearance,Urine CLEAR (Clear); Bilirubin,Urine Negative (Negative); Blood, Urine Negative (Negative); Color,Urine YELLOW (Yellow); Glucose,Urine (UA) Negative (Negative); Ketones,Urine Negative (Negative); Leukocyte Esterase,Urine Negative (Negative); Nitrate,Urine Negative (Negative); Protein,Urine Negative (Negative); Specific Gravity, Urine 1.025 (1.005-1.030); Urobilinogen,Urine 0.2 EU/dl (0.2)
[2025-01-31 22:56] LABS: Bacteria,Urine 2+ /lpf; Yeast,Urine Occasional /lpf
== END 2025-01-31 23:59 | disposition home or self-care (01) ==
LOC: LAB.DROPOF 20:57
PROVIDERS: PCP Family Medicine; Visit Provider Family Medicine
DX: R31.9 Hematuria, unspecified (principal)
CPT/HCPCS: 81001; 87086

== ENCOUNTER 2025-06-27 19:30 | Outpatient (CLI) | payer MEDICARE, SELFPAY ==
--- NOTE | 2025-06-27 19:31 | XR_ITS ---
PROCEDURE INFORMATION: Exam: XR Left Ankle Exam date and time: 06/27/2025 7:25 PM Age: 60 years old Clinical indication: Pain and injury or trauma; Fall; Blunt trauma; Ankle; Left; Additional info: Lt ankle injury TECHNIQUE: Imaging protocol: Radiologic exam of the left ankle. Views: 1 or 2 views. COMPARISON: No relevant prior studies available. FINDINGS: Bones/joints: Cortical irregularity at the lateral margin of the talus may represent undisplaced fracture. Soft tissues: Moderate soft tissue swelling of the ankle. IMPRESSION: Cortical irregularity at the lateral margin of the talus may represent undisplaced fracture.
--- OUTSIDE RECORDS SUMMARY | 2025-06-27 19:33 | XMS_ITS | Clinical Summary ---
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 Name Role Phone Savita Mackey [phone] Conditions or Problems Problem Name Problem Code Onset Date Status Entry Date Provider Comment Standard Description Annotate Take Note of LEG PAIN 25371264 (SNOMED CT) Active Elzbieta Yosemite Pain in lower limb NEOP, BNG, PITUITARY GLAND D35.2 (ICD-10-CM) Active Elzbieta Titus Benign neoplasm of pituitary gland ANEURYSM 268299051 (SNOMED CT) Active Elzbieta Titus Aneurysm History of KIDNEY CANCER- LEFT KIDNEY REMOVED 07/08/10 C64.9 (ICD-10-CM) Active Elzbieta Titus Malignant neoplasm of unspecified kidney, except renal pelvis Take Note of TOBACCO USER 471397247 (SNOMED CT) Active Elzbieta Titus Tobacco user Take Note of PARESTHESIA 94044847 (SNOMED CT) Active Elzbieta Yosemite Paresthesia Take Note of TINNITUS 09741150 (SNOMED CT) Active Elzbieta Titus Tinnitus Take Note of HEADACHE 07958576 (SNOMED CT) Active Elzbieta Titus Headache Take Note of WEIGHT GAIN 495333343 (SNOMED CT) Active Elzbieta Yosemite Abnormal weight gain Medications Medication Instructions Start Date Stop Date Generic Name NDC Provider VALIUM 5 MG TABS take one tablet by mouth 1 hour prior to scan and take the other if needed right before scan DIAZEPAM [id number] Nikolas Martinez MD VICODIN ES 7.5-750 MG TABS 1/2 tab prn pain HYDROCODONE -ACETAMINOP HEN [id number] Elzbieta Qureshi WARFARIN SODIUM 4 MG TABS 1 tab daily WARFARIN SODIUM [id number] Elzbieta Qureshi Medications Administered No information available. Allergies, Adverse Reactions, Alerts Allergy Name Reaction Description Start Date Severity Statu s Provider ERYTHROMYCIN BASE rash, nausea Critical Elzbieta Titus Results No information available. Plan of Care Type Date Detail Pending order MRI Pituitary Pr otocol w/ & w/o Contrast Pending order MRI Pituitary Pr otocol w/ & w/o Contrast Pending order MRA Brain Pending order MRI Pituitary Pr otocol w/ & w/o Contrast Pending order LH Pending order ACTH Pending order IGF-1 Pending order Prolactin level Pending order Cortisol 8 AM Pending order FSH Pending order Estradiol Pending order Free T4 Pending order TSH Pending order Growth Hormone Procedures No information available. Vital Signs Date Name Value Unit Description BMI (Body Mass Index) 26.92 kg/m2 Bod y Mass Index (Ratio) BP Diastolic 74 mm[Hg] blood pressu re, diastolic BP Systolic 122 mm[Hg] blood pressur e, systolic Height 63 [in_us] height E&M Weight Measured 152 [lb_av] weight E& M Weight Measured 152 [lb_av] weight E& M Heart Rate 77 /min pulse rate Immunizations No information available. Advance Directives No information available.
--- OUTSIDE RECORDS SUMMARY | 2025-06-27 19:34 | XMS_ITS | Data Portability ---
Author Organization [place] [facility] Address [address] [place] [address] Care Team Providers Care Diamond Cleaver Name Role Phone VERONICALALITHA Saravia Primary Care Provider Assessment Encounter Date Assessment Date Assessment LastModified by Organization Details LastModified Time 08/17/2023 08/17/2023 We are still waiting on the echocardiogram and Myoview. These are being performed next week. The Plan: -Continue other current medications. -Continue aggressive risk factor modification. -Recommend LDL less than 100. -Encouraged regular exercise and activity. Patient Education was printed, I have reviewed the Past Medical, Family, and Social Histories along with ROS and all orders in today's record, and have noted any changes. - Medications, charts and records reviewed in full today. EKG 07/05/23 normal sinus rhythm with nonspecific ST and T-wave changes anterior LAST ECHO: 09/27/2018 Ejection Fraction 60 65%. There is mild LVH. Otherwise normal echo LAST ISCHEMIC EVAL: August 09, 2023 showed ischemia to a moderate portion of the lateral baltazar. This is a high risk Myoview -echo denied by insurance LAST HEART CATH: 11/08/2018 [facility]. Normal coronary arteries. No stents placed last LDL cholesterol 06/2023 was 129 with a normal creatinine at 1.0 CELENA: 06/28/2019 normal study LAST CNI: 07/19/2023 no significant stenosis of either ICA. Nonvisualization of the left subclavian artery and left vertebral artery therefore the patency is in question. 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 -patient has been experiencing class 3 to class 4 angina. She also has some left arm pain. Risks and benefits of left heart catheterization and left subclavian angiography were discussed in full today. These include, but are not limited to, injury to blood vessels, fistula, pseudoaneurysm, stroke, distal embolization, myocardial infarction, infection and . Patient states understanding of risks and has agreed to proceed with angiographic evaluation. -typical angina -worsening angina -suspected coronary artery disease -new onset angina less than 2 months -pending lipid profile -AV aubrey reentry tachycardia -frailty score 4 -high risk Myoview -class 3 to class 4 angina -not on maximal medical therapy -follow-up in 2 weeks This note was dictated using MyoKardia software. If something is unclear, or does not make sense, please do not hesitate to contact our office at [phone] for clarification. [email or web address] Not available 08/17/2023 15:37:01 09/02/2023 09/02/2023 Patient has studies that were concerning for progression of coronary disease as well as subclavian artery stenosis. These tests were obviously a false positive as her coronaries are normal and her subclavian artery is normal. Blood pressure and heart rate are under good control. The echocardiogram was denied. We can hold off on this for now. Her cardiac catheterization showed normal function and normal coronary arteries with normal left subclavian artery. We will continue the same medical regimen. Meds and chart reviewed in full today. Blood pressure and heart rate look great. Her blood work looked good. Follow-up in 10-12 weeks. No changes in the medical regimen Groin well healed from cardiac catheterization. Continue metoprolol Monitor blood pressure and heart rate Blood work as per primary care Follow-up in Cardiology Clinic in 10-12 weeks Plan: -Continue other current medications. -Continue aggressive risk factor modification. -Recommend LDL less than 100. -Encouraged regular exercise and activity. Patient Education was printed, I have reviewed the Past Medical, Family, and Social Histories along with ROS and all orders in today's record, and have noted any changes. Medications, charts and records reviewed in full today. EKG 07/05/23 normal sinus rhythm with nonspecific ST and T-wave changes anterior LAST ECHO: -echo denied by insurance LAST ISCHEMIC EVAL: August 09, 2023 showed ischemia to a moderate portion of the lateral baltazar. This is a high risk Myoview LAST HEART CATH: 08/24/2023 [facility]. Normal coronary arteries. No stents placed last LDL cholesterol 06/2023 was 129 with a normal creatinine at 1.0 CELENA: 06/28/2019 normal study LAST CNI: 07/19/2023 no significant stenosis of either ICA. Nonvisualization of the left subclavian artery and left vertebral artery therefore the patency is in question. 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 IOfelia CMA, am scribing for, and in the presence of, Stanislaw Cortes MD. Stanislaw Barney M.D. performed the services as described in this documentation, as scribed by Ofelia Cortés CMA in my presence, and it is both accurate and complete. This note was dictated using MyoKardia software. If something is unclear, or does not make sense, please do not hesitate to contact our office at [phone] for clarification. alfredo Not available 09/02/2023 10:43:20 01/25/2024 01/25/2024 Patient has been having some increasing shortness of breath. Her coronaries are normal. I am more worried about her lungs at this time. I am going to put her on Lasix 20 mg daily. We are going to get an echocardiogram, pulmonary function test and a CT of the chest. Known significant tobacco use. EKG shows normal sinus rhythm with early repolarization and nonspecific changes. Follow-up in 4-5 weeks. Continue the other medications. 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 -Continue aggressive risk factor modification. -Recommend LDL less than 100. -Encouraged regular exercise and activity. Patient Education was printed, I have reviewed the Past Medical, Family, and Social Histories along with ROS and all orders in today's record, and have noted any changes. Medications, charts and records reviewed in full today. EKG today shows normal sinus rhythm with early repolarization and nonspecific changes LAST ECHO: -echo denied by insurance. We will reorder LAST ISCHEMIC EVAL: August 09, 2023 showed ischemia to a moderate portion of the lateral baltazar. This is a high risk Myoview LAST HEART CATH: 08/24/2023 [facility]. Normal coronary arteries. No stents placed last LDL cholesterol 06/2023 was 129 with a normal creatinine at 1.0 CELENA: 06/28/2019 normal study LAST CNI: 07/19/2023 no significant stenosis of either ICA. Nonvisualization of the left subclavian artery and left vertebral artery therefore the patency is in question. 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 This note was dictated using MyoKardia software. If something is unclear, or does not make sense, please do not hesitate to contact our office at [phone] for clarification. alfredo Not available 01/25/2024 11:06:43 03/07/2024 03/07/2024 Edema has resolved. Significant improvement. Blood pressure and heart rate are under excellent control. Weight is down 12 lb. Continue the Lasix 20 mg daily. Thyroid ultrasound has been ordered by primary care as well as blood work. CT showed some nodules but they are stable. Also some thyroid nodules. The echocardiogram showed normal function at 60-65%. Diastolic dysfunction. Pulmonary function tests pending. Follow-up in 8-10 weeks. Meds and chart reviewed in full today Continue metoprolol Continue Lasix 20 mg daily... Weight is down 12 lb since starting Thyroid management as per primary care Encourage exercise and weight loss Follow-up in Cardiology Clinic in 8-10 weeks Monitor blood pressure and heart rate Plan: -Continue other current medications. -Continue aggressive risk factor modification. -Recommend LDL less than 100. -Encouraged regular exercise and activity. Patient Education was printed, I have reviewed the Past Medical, Family, and Social Histories along with ROS and all orders in today's record, and have noted any changes. Medications, charts and records reviewed in full today. EKG today shows normal sinus rhythm with early repolarization and nonspecific changes LAST ECHO: 02/14/2024 with ejection fraction 60-65% diastolic dysfunction. Normal pressures in the heart CT chest with stable nodules from 2019. Thyroid nodules were noted. No other acute process pulmonary function test pending thyroid ultrasound pending LAST ISCHEMIC EVAL: August 09, 2023 showed ischemia to a moderate portion of the lateral baltazar. This is a high risk Myoview LAST HEART CATH: 08/24/2023 [facility]. Normal coronary arteries. No stents placed last LDL cholesterol 06/2023 was 129 with a normal creatinine at 1.0 CELENA: 06/28/2019 normal study LAST CNI: 07/19/2023 no significant stenosis of either ICA. Nonvisualization of the left subclavian artery and left vertebral artery therefore the patency is in question. 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 This note was dictated using MyoKardia software. If something is unclear, or does not make sense, please do not hesitate to contact our office at [phone] for clarification. [email or web address] Not available 03/07/2024 10:57:00 05/09/2024 05/09/2024 edema has resolv ed since the diuretic. Blood pressure and heart rate are under excellent control. Known normal coronaries. She is on excellent blood pressure medications. Weight is down about 16 lb since we started this. Echocardiogram with normal function but diastolic dysfunction with an ejection fraction 60-65%. Cardiac catheterization in August with normal coronaries. Normal carotid back in July. Follow-up in 4 months. Meds and chart reviewed in full today. Continue current diuretic. Encourage continued exercise and weight loss Patient Education was printed, I have reviewed the Past Medical, Family, and Social Histories along with ROS and all orders in today's record, and have noted any changes. Medications, charts and records reviewed in full today. PLAN: Continue Lasix 20 mg daily Continue metoprolol EKG at follow-up Follow-up in 4 months Encourage exercise and weight loss Monitor blood pressure and heart rate Continue other current medications. Continue aggressive risk factor modification. Recommend LDL less than 100. Encouraged regular exercise and activity. EK01/25/2024 -showed normal sinus rhythm with early repolarization and nonspecific changes LAST ECHO: 02/14/2024 with ejection fraction 60-65% diastolic dysfunction. Normal pressures in the heart CT chest:02/2024- with stable nodules from 2019. Thyroid nodules were noted. No other acute process PULMONARY FUNCTION TEST: THYROID US: 02/28/2024 -Mild thyromegaly. Mild interval enlargement 1 cm TR 4 nodule lower pole right gland. Recommend follow-up study in 12 months. Stable 1.5 cm TR 3 nodule upper pole of gland. Recommend follow-up study in 12 months. Slight interval enlargement 1.7 cm TR 3 nodule left mid gland. Recommend follow-up study in 12 months. Mild interval enlargement 1.4 cm TR 3 nodule left mid gland. Recommend attention to this and follow-up study. LAST ISCHEMIC EVAL: August 09, 2023 showed ischemia to a moderate portion of the lateral baltazar. This is a high risk Myoview LAST HEART CATH: 08/24/2023 [facility]. Normal coronary arteries. No stents placed last LDL cholesterol 06/2023 was 129 with a normal creatinine at 1.0 CELENA: 06/28/2019 normal study LAST CNI: 07/19/2023 no significant stenosis of either ICA. Nonvisualization of the left subclavian artery and left vertebral artery therefore the patency is in question. 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 IMISSAEL LPN, I AM SCRIBING FOR, AND IN THE OFFICE/PRESENCE OF, STANISLAW CORTES MD. ISTANISLAW M.D. PERFORMED THE SERVICES DESCRIBED IN THIS DOCUMENTATION, SCRIBED BY MISSAEL THAYER LPN IN MY PRESENCE, AND IT IS BOTH ACCURATE AND COMPLETE. This note was dictated using MyoKardia software. If something is unclear, or does not make sense, please do not hesitate to contact our office at [phone] for clarification. alfredo Not available 05/09/2024 12:06:15 Plan of Treatment Reminders Order Date Submit Date Provider Last Modified By Organization Details Last Modified Time Details Appointments None recorded. Lab BMP, serum or plasma 2023 024 [email or web address] 48 [facility] (Registration ), [address], [place], [address], 4 08:03:06 CMP, serum or plasma 2022 023 [facility] (Registration ), [place], [address], 3 14:52:03 CBC 2022 023 [email or web address] 1 [facility] (Registration ), [place], [address], 3 07:33:11 lipid panel, serum 2022 023 [facility] (Registration ), [address], [place], [address], 3 14:52:04 Referral None recorded. Procedures selective catheter placement, subclavian or innominate artery, unilateral, with angiography of the ipsilateral vertebral circulation (PROC) 2022 023 [email or web address] Not available 3 13:57:31 Surgeries left heart catheteriza tion (SURG) 2022 023 [email or web address] [facility] (Outpatient [facility]), [place], [address], 3 13:44:52 Imaging US, echocardiog aneesh, transthorac ic, complete, w/ color flow 2023 024 joselito [facility]den[facility] (Centralized Scheduling), [address] [place] [address] [place], [place], [address], 4 08:00:09 CT, chest, w/ contrast 2023 024 DENNIS [facility]den[facility] (Centralized Scheduling), [address] [place] [address] [place], [place], [address], 4 12:15:08 PFT, complete 2023 024 [email or web address] Cárdenas (Centralized Scheduling), [address] [place] [address] , [place], [address], 4 08:00:29 electrocard iogram 2023 024 [email or web address] 48 [facility], [address] [place] [address] [address] [place], [place], [address], 4 11:20:34 Medication Orders Lasix 20 mg tablet 2023 024 DENNIS [facility], [address] [place] [address], [address], 4 11:33:06 Patient TargetsNo targets recorded. Patient InstructionsNo instructions recorded. Reason for Referral None Reported. Results Created Date Observation Date Name Description Value Unit Range Abnormal Flag Note LastModifiedBy Organization Detail LastModifiedTime 08/17/2008/17/2023 CBC W/AUT O RACHEAL AYOUB note See Note Order ing Provi aaron: Stanislaw bowers MD Not Available [address] [place], [place], [address], 08/17/2023 14:06:36 08/17/20 23 08/17/2023 CBC W/AUT O DIFFJennifer HAWKINS AL white blood cell 6.0 10e3/ uL 4.5-13 .0 normal Not Available [address] [place], [place], [address], 08/17/2023 14:06:36 12/12/20 23 08/17/2023 CBC W/AUT O DIFFE RENTI AL red blood cell 4.75 10e6/ uL 3.80-5 .10 normal Not Available [place] [address], [place], [address], 08/17/2023 14:06:36 08/17/20 23 08/17/2023 CBC W/AUT O DIFFE RENTI AL hemoglobin 13.7 g/dL 11.5-1 5.3 normal Not Available [address] [place], [place], [address], 08/17/2023 14:06:36 08/17/20 23 08/17/2023 CBC W/AUT O DIFFE RENTI AL hematocrit 40.7 % 34.0-4 6.0 normal Not Available [place] [address], [place], [address], 08/17/2023 14:06:36 08/17/20 23 08/17/2023 CBC W/AUT O DIFFE RENTI AL mean cell volume 86 fL 78.0-9 8.0 normal Not Available [place] [address], [place], [address], 08/17/2023 14:06:36 08/17/20 23 08/17/2023 CBC W/AUT O DIFFE RENTI AL mean cell HGB 28.8 pg 25.0-3 5.0 normal Not Available [place] [address], [place], [address], 08/17/2023 14:06:36 08/17/20 23 08/17/2023 CBC W/AUT O DIFFE RENTI AL mean cell HGB concentratio n 33.7 g/dL 31.0-3 6.0 normal Not Available [address] [place], [place], [address], 08/17/2023 14:06:36 08/17/20 23 08/17/2023 CBC W/AUT O DIFFE RENTI AL red cell distribution width 14.4 % 11.0-1 5.0 normal Not Available [address] [place], [place], [address], 08/17/2023 14:06:36 08/17/20 23 08/17/2023 CBC W/AUT O DIFFE RENTI AL platelet count 357 10e3/ uL 150-40 0 normal Not Available [address] [place], [place], [address], 08/17/2023 14:06:36 08/17/20 23 08/17/2023 CBC W/AUT O DIFFE RENTI AL immature granulocyte % 0 0-1 normal Not Available [address] [place], [place], [address], 08/17/2023 14:06:36 08/17/20 23 08/17/2023 CBC W/AUT O DIFFE RENTI AL neutrophil % 51 % 35-75 normal Not Available [address] [place], [place], [address], 08/17/2023 14:06:36 08/17/20 23 08/17/2023 CBC W/AUT O DIFFE RENTI AL lymphocyte % 38 % 10-50 normal Not Available [address] [place], [place], [address], 08/17/2023 14:06:36 08/17/20 23 08/17/2023 CBC W/AUT O DIFFE RENTI AL monocyte % 8 % 0-15 normal Not Available [address] [place], [place], [address], 08/17/2023 14:06:36 08/17/20 23 08/17/2023 CBC W/AUT O DIFFE RENTI AL eosinophil % 3 % 0-5 normal Not Available [address] [place], [place], [address], 08/17/2023 14:06:36 08/17/20 23 08/17/2023 CBC W/AUT O DIFFE RENTI AL basophil % 1 % 0-5 normal Not Available [address] [place], [place], [address], 08/17/2023 14:06:36 08/17/20 23 08/17/2023 CBC W/AUT O DIFFE RENTI AL immature granulocyte # 0.01 x1000 /uL 0-0.05 normal Not Available [address] [place], [place], [address], 08/17/2023 14:06:36 08/17/20 23 08/17/2023 CBC W/AUT O DIFFE RENTI AL neutrophil # 3.06 x1000 /uL 1.50-8 .00 normal Not Available [address] [place], [place], [address], 08/17/2023 14:06:36 08/17/20 23 08/17/2023 CBC W/AUT O DIFFE RENTI AL lymphocyte # 2.28 x1000 /uL 1.20-5 .20 normal Not Available [address] [place], [place], [address], 08/17/2023 14:06:36 08/17/20 23 08/17/2023 CBC W/AUT O DIFFE RENTI AL monocyte # 0.45 x1000 /uL 0.40-0 .90 normal Not Available [address] [place], [place], [address], 08/17/2023 14:06:36 08/17/20 23 08/17/2023 CBC W/AUT O DIFFE RENTI AL eosinophil # 0.19 x1000 /uL 0.00-0 .50 normal Not Available [address] , [place], [address], 08/17/2023 14:06:36 08/17/20 23 08/17/2023 CBC W/AUT O DIFFE SHRUTHI AYOUB basophil # 0.05 x1000 /uL 0.00-0 .30 normal Not Available [address] , [place], [address], 08/17/2023 14:06:36 08/17/20 23 08/17/2023 CBC W/AUT O DIFFE SHRUTHI AYOUB NRBC automated 0.0 /100_ WBC Not Available [address] , [place], [address], 08/17/2023 14:06:36 08/17/20 23 08/17/2023 CBC W/AUT O DIFFE SHRUTHI AYOUB performing lab see note - [address] [facility] [address] Not Available [address] , [place], [address], 08/17/2023 14:06:36 08/17/20 23 08/17/2023 COMP METAB OLIC PANEL note SEE NOTE Order ing Provi aaron: Stanislaw bowers MD Not Available [address] , [place], [address], 08/17/2023 14:52:03 08/17/20 23 08/17/2023 COMP METAB OLIC PANEL sodium 140 mmol/ L 136-14 5 normal Not Available [address] [place], [place], [address], 08/17/2023 14:52:03 08/17/20 23 08/17/2023 COMP METAB OLIC PANEL potassium 4.3 mmol/ L 3.5-5. 1 normal Not Available [address] [place], [address], 08/17/2023 14:52:03 08/17/20 23 08/17/2023 COMP METAB OLIC PANEL chloride 105 mmol/ L 98-107 normal Not Available [address] [place], [place], [address], 08/17/2023 14:52:03 08/17/20 23 08/17/2023 COMP METAB OLIC PANEL carbon dioxide 25 mmol/ L 24-33 normal Not Available [address] [place], [place], [address], 08/17/2023 14:52:03 08/17/20 23 08/17/2023 COMP METAB OLIC PANEL anion gap 14.3 mmol/ L 10-20 normal Not Available [address] [place], [place], [address], 08/17/2023 14:52:03 08/17/20 23 08/17/2023 COMP METAB OLIC PANEL glucose 94 mg/dL 70-99 normal Not Available [address] [place], [place], [address], 08/17/2023 14:52:03 08/17/20 23 08/17/2023 COMP METAB OLIC PANEL blood urea nitrogen 8 mg/dL 7-18 normal Not Available [address] [place], [place], [address], 08/17/2023 14:52:03 08/17/20 23 08/17/2023 COMP METAB OLIC PANEL creatinine 1.10 mg/dL 0.55-1 .02 high Not Available [address] [place], [place], [address], 08/17/2023 14:52:03 08/17/20 23 08/17/2023 COMP METAB OLIC PANEL GFR (estimated) 58 mL/mi n >60 low [IM CYNTHIA NT]: The 2020 CKD-E PI equat ion is now the recom lindsey d stand brenda. This versi on does not inclu de race, as do the 2008 and 2011 CKD-E PI creat inine and creat inine -cyst atin C equat ions. Yolie e note that the eGFR now repor kevin is gener ated by the new 2020 CKD-E PI equat ion, which decre ases the eGFR for black s by up to 10% and incre ases the eGFR for non-b lacks by up to 10% in kathe rison to the old equat ion. To kathe re a legac y eGFR to a curre nt value , a 2008 CKD-E PI calcu lator is easil y seamarva hable on the inter net. Calcu lated GFR: This calcu lated GFR is advoc ated by the Natio nal Kidne y Found ation to be used as an indic ator of Chron ic Kidne y Disea se (CKD) . 5 Stage s of Chron ic Kidne y Disea se. Stage 1 90 mL/mi n or more Healt hy kidne ys or Kidne y damag e with diana l or high GFR detai ls Stage 2 60 to 89 mL/mi n Kidne y damag e and mild decre ase in GFR detai ls Stage 3 30 to 59 mL/mi n Moder ate decre ase in GFR detai ls Stage 4 15 to 29 mL/mi n Sever e decre ase in GFR detai ls Stage 5 Less than 15 mL/mi n On dialy sis or Kidne y failu re Patie nt's clini jeffery statu s must be consi dered for the care of your patie nt. Not Available [address] , [place], [address], 08/17/2023 14:52:03 08/17/20 23 08/17/2023 COMP METAB OLIC PANEL BUN/creatini ne ratio 7 - low Not Available [address] [place], [place], [address], 08/17/2023 14:52:03 12/12/08/17/2023 COMP METAB OLIC PANEL total protein 7.1 g/dL 6.4-8. 2 normal Not Available [address] , [place], [address], 08/17/2023 14:52:03 08/17/20 23 08/17/2023 COMP METAB OLIC PANEL albumin 3.4 g/dL 3.4-5. 0 normal Not Available [address] , [place], [address], 08/17/2023 14:52:03 08/17/20 23 08/17/2023 COMP METAB OLIC PANEL globulin 3.7 g/dL 1.5-4. 0 normal Not Available [address] , [place], [address], 08/17/2023 14:52:03 08/17/20 23 08/17/2023 COMP METAB OLIC PANEL albumin/glob ulin ratio 0.9 0.5-2. 0 normal Not Available [address] , [place], [address], 08/17/2023 14:52:03 08/17/20 23 08/17/2023 COMP METAB OLIC PANEL calcium 9.1 mg/dL 8.5-10 .1 normal Not Available [address] , [place], [address], 08/17/2023 14:52:03 08/17/20 23 08/17/2023 COMP METAB OLIC PANEL osmolality serum calculated 276 mOsm/ kg 272-28 8 normal Not Available [address] [place], [address], 08/17/2023 14:52:03 08/17/20 23 08/17/2023 COMP METAB OLIC PANEL bilirubin total 0.4 mg/dL 0.2-1. 0 normal Use of this assay is not recom lindsey d for patie nts under going treat ment with Eltro mbopa g due to the poten tial for false ly eleva kevin resul ts. Not Available [address] , [place], [address], 08/17/2023 14:52:03 08/17/20 23 08/17/2023 COMP METAB OLIC PANEL SGOT/AST 16 U/L 15-37 normal Not Available [address] , [place], [address], 08/17/2023 14:52:03 08/17/20 23 08/17/2023 COMP METAB OLIC PANEL SGPT/ALT 25 U/L 14-59 normal Not Available [address] , [place], [address], 08/17/2023 14:52:03 08/17/20 23 08/17/2023 COMP METAB OLIC PANEL alkaline phosphatase total 174 U/L 46-116 high Alkal ine phosp hatas e (AP) level s vary with age & pregn joseph. AP's rise rapid ly durin g the first few weeks of life and reach value s five to six times diana l adult level s in about one month . From that point AP decre ases until puber ty, at which time there is anoth er rise in level s. Level s retur n to diana l adult range s at about 16 - 20 years of age. At age 40 - 50 it begin s to rise about 10% above the adult level . Not Available [address] , [place], [address], 08/17/2023 14:52:03 08/17/20 23 08/17/2023 COMP METAB OLIC PANEL performing lab SEE NOTE ML - [facility] R [address] [facility] [address] Not Available [address] [place], [address], 08/17/2023 14:52:03 12/12/20 23 08/17/2023 LIPID PANEL note SEE NOTE Order ing Provi aaron: Stanislaw bowers MD Not Available [address] [place], [address], 08/17/2023 14:52:04 08/17/20 23 08/17/2023 LIPID PANEL triglyceride s 109 mg/dL < 150 normal Natio nal Monica stero l Educa tion Progr am (NCEP ) Guide lines : Diana l < 150 mg/dL Borde rline 150 - 199 mg/dL High 200 - 499 mg/dL Very High >or= 500 mg/dL Not Available [address] [place], [address], 08/17/2023 14:52:04 08/17/20 23 08/17/2023 LIPID PANEL cholesterol 171 mg/dL < 200 normal Natio nal Monica stero l Educa tion Progr am (NCEP ) Guide lines : Cheyanne able < 200 mg/dL Borde rline Risk 200 - 239 mg/dL High Risk >or= 240 mg/dL Not Available [address] [place], [address], 08/17/2023 14:52:04 08/17/20 23 08/17/2023 LIPID PANEL HDL cholesterol 40 mg/dL > 60 low Natio nal Monica stero l Educa tion Progr am Adult Treat ment Panel III (NCEP -ATP III) Guide lines : < 40 mg/dl : Low HDL-C holes terol >or= 60 mg/dl : High HDL-C holes terol Not Available [address] [place], [address], 08/17/2023 14:52:04 08/17/20 23 08/17/2023 LIPID PANEL LDL cholesterol 109 mg/dL < 100 high Natio nal Monica stero l Educa tion Progr am (NCEP ) Guide lines : Optim al < 100 mg/dL Near/ Above Optim al 100 - 129 mg/dL Borde rline High 130 - 159 mg/dL High 160 - 189 mg/dL Very High >or= 190 mg/dL Not Available [address] , [place], [address], 08/17/2023 14:52:04 08/17/20 23 08/17/2023 LIPID PANEL performing lab SEE NOTE ML - [facility] [address] [facility] [address] Not Available [address] , [place], [address], 08/17/2023 14:52:04 02/07/20 24 02/07/2024 BASIC METAB OLIC PANEL note SEE NOTE Order ing Provi aaron: Stanislaw bowers MD Not Available [address] , [place], [address], 02/07/2024 09:15:24 02/07/20 24 02/07/2024 BASIC METAB OLIC PANEL sodium 136 mmol/ L 136-14 5 normal Not Available [address] , [place], [address], 02/07/2024 09:15:24 02/07/20 24 02/07/2024 BASIC METAB OLIC PANEL potassium 3.9 mmol/ L 3.5-5. 1 normal Not Available [address] [place], [place], [address], 02/07/2024 09:15:24 02/07/20 24 02/07/2024 BASIC METAB OLIC PANEL chloride 99 mmol/ L 98-107 normal Not Available [address] , [place], [address], 02/07/2024 09:15:24 02/07/20 24 02/07/2024 BASIC METAB OLIC PANEL carbon dioxide 32 mmol/ L 24-33 normal Not Available [address] , [place], [address], 02/07/2024 09:15:24 02/07/20 24 02/07/2024 BASIC METAB OLIC PANEL anion gap 8.9 mmol/ L 10-20 low Not Available [address] , [place], [address], 02/07/2024 09:15:24 02/07/20 24 02/07/2024 BASIC METAB OLIC PANEL glucose 139 mg/dL 70-99 high Not Available [address] , [place], [address], 02/07/2024 09:15:24 02/07/2002/07/2024 BASIC METAB OLIC PANEL blood urea nitrogen 11 mg/dL 7-18 normal Not Available [address] , [place], [address], 02/07/2024 09:15:24 02/07/20 24 02/07/2024 BASIC METAB OLIC PANEL creatinine 1.14 mg/dL 0.55-1 .02 high Not Available [address] , [place], [address], 02/07/2024 09:15:24 02/07/2002/07/2024 BASIC METAB OLIC PANEL GFR (estimated) 55 mL/mi n >60 low [IM CYNTHIA NT]: The 2020 CKD-E PI equat ion is now the recom lindsey d stand brenda. This versi on does not inclu de race, as do the 2008 and 2011 CKD-E PI creat inine and creat inine -cyst atin C equat ions. Yolie e note that the eGFR now repor kevin is gener ated by the new 2020 CKD-E PI equat ion, which decre ases the eGFR for black s by up to 10% and incre ases the eGFR for non-b lacks by up to 10% in kathe rison to the old equat ion. To kathe re a legac y eGFR to a curre nt value , a 2009 CKD-E PI calcu lator is easil y seamarva hable on the inter net. Calcu lated GFR: This calcu lated GFR is advoc ated by the [employer] [employer] [employer] ation to be used as an indic ator of Chron ic Kidne y Disea se (CKD) . 5 Stage s of Chron ic Kidne y Disea se. Stage 1 90 mL/mi n or more Healt hy kidne ys or Kidne y damag e with diana l or high GFR detai ls Stage 2 60 to 89 mL/mi n Kidne y damag e and mild decre ase in GFR detai ls Stage 3 30 to 59 mL/mi n Moder ate decre ase in GFR detai ls Stage 4 15 to 29 mL/mi n Sever e decre ase in GFR detai ls Stage 5 Less than 15 mL/mi n On dialy sis or Kidne y failu re Patie nt's clini jeffery statu s must be consi dered for the care of your patie nt. Not Available [address] , [place], [address], 02/07/2024 09:15:24 02/07/20 24 02/07/2024 BASIC METAB OLIC PANEL BUN/creatini ne ratio 9 12-20 low Not Available [address] [place], [address], 02/07/2024 09:15:24 02/07/20 24 02/07/2024 BASIC METAB OLIC PANEL calcium 9.3 mg/dL 8.5-10 .1 normal Not Available [address] [place], [address], 02/07/2024 09:15:24 02/07/20 24 02/07/2024 BASIC METAB OLIC PANEL osmolality serum calculated 272 mOsm/ kg 272-28 8 normal Not Available [address] [place], [address], 02/07/2024 09:15:24 02/07/20 24 02/07/2024 BASIC METAB OLIC PANEL performing lab SEE NOTE ML - [facility] [address] [place] [place] [address] Not Available [place] [address] [facility] [address] , [place], [address], 02/07/2024 09:15:24 07/19/20 23 07/19/2023 US, duple x, carot id arter y [facility] Name: Taylor BALDERAS P[facility] to [facility] [employer] Phys: Reese LIU, Stanislaw howard, [place] [address] : 1964 Age: 58 Sex: F Acct: [id number] Loc: PHONE #: Exam Date: 2022 Status : REG CLI FAX #: [phone] Rad# [id number] Unit# [id number] Admit Date: 2022 EXAMS: CPT CODE: [id number] CAROTI D DUPLEX DOPPLE R 16002 CLINIC AL INFORM ATION: Tobacc o use, obesit y, vertig o/dizz iness COMPAR TATIANA: None TECHNI QUE: Multip le graysc lm sonogr aphic images of the bilate ral caroti d system s were obtain ed in the transv erse and longit udinal planes . Color Dopple r and spectr al wavefo rm analys is were applie d to assess vascul ar flow. All stenos is percen tages are made and refere nced to the distal biology internship al caroti d artery . FINDIN GS: On the right, no signif icant plaque deposi tion. Peak systol ic veloci ties in the right common , biology internship al, and bobbin collector al caroti d arteri es are 162, 95 and 89 cm/s, respec tively . Wavefo arben within normal limits . Veloci ty ratios within normal limits . Normal flow in the right verteb ral and subcla vian arteri es. On the left, no signif icant plaque deposi tion. Peak systol ic veloci ties in the right common , biology internship al, and bobbin collector al caroti d arteri es are 66, 103, and 83 cm/s, respec tively . Wavefo arben within normal limits . Veloci ty ratios within normal limits . Left verteb ral artery and subcla vian artery cannot be identi fied IMPRES LUIS ARMANDO: 1. No signif icant stenos is of either biology internship al caroti d artery . 2. Nonvis ualiza tion left subcla vian artery and left verteb ral artery and theref ore their patenc y is in questi on Commun icatio n: Per this writte n report . This report is genera kevin using voice recogn ition comput er softwa re. Inadve rtent errors may have occurr ed while dictat ing report . Common sense approa ch is apprec iated and do not hesita te to call for clarif icatio n when necess yvrose. Electr onical ly Signed by Dimas Bowers on 2022 at 1500 Report ed and signed by: REA Bowers M.D. PAGE 1 Signed Report (BRITNEY NUED) [facility] Name: Taylor BALDERAS [address] [employer] Phys: Reese LIU, [place] [facility] [place] [address] : 1964 Age: 58 Sex: F Acct: [id number] Loc: . PHONE #: Exam Date: 2022 Status : REG CLI FAX #: Rad# [id number] Unit# [id number] Admit Date: 2022 EXAMS: CPT CODE: [id number] CAROTI D DUPLEX DOPPLE R 47865 CC: Stanislaw Cortes MD; Lalitha Armas MD Dictat ed Date/T nathaniel: 2022 (1500) Techno logist : MAICOL FLORES RCoreen Transc ribed Date/T nathaniel: 2022 (1500) Transc riptio nist: DR.HAR DOWNS Electr onic Signat ure Date/T nathaniel: 2022 (1500) Printe d Date/T nathaniel: 2022 (1502) BATCH NO: N/A PAGE 2 Signed Report CC'ed Logic: Orderi ng Provid er: REESE DOVER Attend ing Provid er: REESE DOVER Referr ing Provid er: REESE DOVER Consul ting Provid er: KATERINA olivaresvins[address] , [place], [address], 07/19/2023 15:06:55 08/17/20 23 08/17/2023 - myoca rd SPECT wm/ef healthcare consultant [facility] Medica l Name: JL ZAIDARUTHTaylor [address] [place] [address] Drive Phys: [place] [address] : 1964 Age: 58 Sex: F Acct: [id number] Loc: DOC PHONE #: [phone] Exam Date: 2022 Status : DEP CLI FAX #: Rad# [id number] Unit# [id number] Admit Date: 2022 EXAMS: CPT CODE: [id number] MYOCAR D SPECT WM/EF RN GERIATRIC [id number] Reason study: Chest pain/s hortne ss of breath Patien t underw ent a Lexisc an protoc ol for 11 second s. Restin g heart rate was 70 bpm and cassy to a maximu m heart rate of 99 bpm. The restin g blood pressu re was 150/72 mmHg and the test was stoppe d when Lexisc an infusi on was comple te. Restin g EKG shows normal sinus rhythm with early repola rizati on. With Lexisc an there are no diagno stic ST or T wave change s. Heart rate and blood pressu re respon se approp riate. Overal l this is nondia gnosti c second yvrose to an adequa te heart rate. Myovie w images were obtain ed both at stress and rest. Stress Myovie w images show modera te decrea sed uptake of a modera te portio n of the latera l wall. Restin g images show unifor m myocar dial activi ty. Gated images show hyperd ynamic left ventri cular systol ic functi on with an ejecti on fracti on of 82%. 1. Nondia gnosti c EKG with Lexisc an infusi on second yvrose to an adequa te heart rate. 2. Ischem ia of a modera te portio n of the latera l wall on myocar dial perfus ion imagin g. 3. Hyperd ynamic left ventri cular systol ic functi on. Electr onical ly Signed by STANISLAW CORTES MD on 2022 at 1241 Report ed and signed by: STANISLAW CORTES MD CC: Stanislaw Cortes MD; Lalitha Armas MD Dictat ed Date/T nathaniel: 2022 (1241) Techno logist : ÓSCAR BROOKS, TRANSCRIBING OPERATOR HEAD Transc ribed Date/T nathaniel: 2022 (1241) Transc riptio nist: DR.LOH KNOX Electr onic Signat ure Date/T nathaniel: 2022 (1241) Printe d Date/T nathaniel: 2022 (1245) BATCH NO: N/A PAGE 1 Signed Report CC'ed Logic: Orderi ng Provid er: REESE DOVER Attend ing Provid er: REESE DOVER Referr ing Provid er: REESE DOVER Consul ting Provid er: KATERINA [email or web address] , [place], [address], 08/17/2023 12:56:27 01/25/20 24 01/25/2024 elect rocar diogr am No observ ation record ed. [email or web address] Not Available 10:54:26 01/25/20 24 01/25/2024 elect rocar diogr am No observ ation record ed. DENNIS Garcia [address] [place], [place], [address], 01/25/2024 13:46:29 02/07/20 24 02/07/2024 CT, chest , w/ contr ast [facility] Name: Taylor BALDERAS [address] [employer] Phys: Reese LIU, [place] [address] : 1964 Age: 58 Sex: F Acct: [id number] Loc: G.CT PHONE #: Exam Date: 2023 Status : REG CLI FAX #: [phone] Rad# [id number] Unit# [id number] Admit Date: 2023 EXAMS: CPT CODE: [id number] 112 CT CHEST W/CONT RAST [address] CT CHEST WITH CONTRA ST, 02/07/20 24: CLINIC AL HISTOR Y: 58-yea r-old female with shortn ess of breath on exerti on. Histor y of renal cell carcin arnaldo status post left nephre ctomy and tobacc o use COMPAR TATIANA: CT chest, 020 and 2018 and thyroi d ultras ound, 020 TECHNI QUE: Multip le axial images throug h the chest were obtain ed follow ing the intrav enous admini strati on of 75 mLs of Isovue -370. This data was used to perfor m jade l and sagitt al recons tructi ons. [employer] Auto mA automa kevin exposu re contro l was utiliz ed for radiat ion dose reduct ion. FINDIN GS: The heart is normal in size. The thorac ic aorta is normal in calibe r. There is a 1 x 1.3 cm lower pretra cheal lymph node, unchan ged from 2019. There is no new pathol ogic intrat horaci c lympha denopa thy. There are severa l left thyroi d nodule s, the larges t measur ing 1.5 cm, more promin ent from the 2020 exam. There is a small slidin g hiatal hernia There is a 1.6 cm bulla within the left lower lobe, unchan ged. There are 2 linear areas of atelec tasis versus fibros is in the right upper lobe, new. There is a stable linear focus of fibros is in the latera l basal segmen t of the right lower lobe. There are severa l right lung nodule s as marked , measur ing 6 mm or less. These are unchan ged from 2019. There are calcif ied granul omas scatte red bilate rally. There is no new pulmon yvrose nodule or pleura l fluid. The airway s are patent . The patien t is status post left nephre ctomy. There is a 1.1 cm right renal cyst. The gallbl adder is surgic ally absent . There are 2 subcen timete r hepati c cysts. The patien t is status post left rotato r cuff repair . There is no suspic ious osseou s lesion IMPRES LUIS ARMANDO: 1. 2 linear foci of atelec tasis versus fibros is in the right upper lobe withou t eviden ce of acute intrat horaci c proces s 2. Severa l right lung nodule s measur e 6 mm or less. These are unchan ged from 2019 and theref ore benign . No follow -up is necess yvrose PAGE 1 Signed Report (BRITNEY NUED) [facility] Name: Taylor BALDERAS RADHA [facility] [employer] Phys: Reese LIU, [place] [facility] [address] : 1964 Age: 58 Sex: F Acct: [id number] Loc: G.CT PHONE #: [phone] Exam Date: 2023 Status : REG CLI FAX #: [phone] Rad# [id number] Unit# [id number] Admit Date: 2023 EXAMS: CPT CODE: [id number] 112 CT CHEST W/CONT RAST 92584 3. Severa l left thyroi d nodule s, measur ing greate r than a centim eter. Recomm end thyroi d ultras ound for furthe r charac teriza tion *Recom mendat ions for follow up/man agemen t of pulmon yvrose nodule s will be based on the [employer] y criter ia NOTE: Any incide ntally noted liver lesion s equal to or less than 5 mm, cystic lesion s in the kidney s less than 1 cm, and/or adrena l lesion s equal to or less than 1 cm, genera lly are consid ered highly likely to be benign and no additi onal evalua tion is recomm ended, unless specif ically mentio shahid in the impres luis armando. Electr onical ly Signed by MARY CARMEN KNOX MD on 2023 at 1211 Report ed and signed by: MARY CARMEN KNOX MD CC: Stanislaw Cortes MD; Lalitha Armas MD Dictat ed Date/T nathaniel: 2023 (1211) Techno logist : MIRA SHANKARAM Y Transc ribed Date/T nathaniel: 2023 (1211) Transc riptio nist: DR.HAG QUEENIE Thomas onic Signat ure Date/T nathaniel: 2023 (121) Printe d Date/T nathaniel: 2023 (1214) BATCH NO: N/A PAGE 2 Signed Report CC'ed Logic: Orderi ng Provid er: RESEE DOVER Attend ing Provid er: REESE DOVER Referr ing Provid er: REESE DOEVR Consul ting Provid er: KATERINA DOTY [email or web address] , [place], [address], 02/09/2024 11:27:23 02/28/20 24 02/28/2024 US, thyro id [facility] Medica l Ce Name: LJ Taylor DEGROOT Pending sale to [facility] [address] Phys: [place] [address] : 1964 Age: 58 Sex: F Acct: [id number] Loc: G.US PHONE #: [phone] Exam Date: 2023 Status : REG CLI FAX #: Rad# [id number] Unit# [id number] Admit Date: 2023 EXAMS: CPT CODE: [id number] US THYROI D 11884 CLINIC AL INFORM ATION: Probab le thyroi d nodula rity. Nontox ic thyroi d nodule COMPAR TATIANA: 020 Proced ure commen ts: Sonogr aphic evalua tion of the thyroi d gland per protoc ol. Images and techno logist notes are review ed. METHOD OLOGY: Up to 4 nodule s with the highes t scores are report ed using the thyroi d imagin g report ing and data system (TI RADS). This system promot es a common lexico n for thyroi d nodule descri ption, focusi ng on releva nt imagin g charac terist ics to allow risk strati ficati on of indivi dual nodule s and make recomm endati ons for biopsy or sonogr aphic follow -up based on estima kevin risk profil e. Deviat ion from manage ment recomm endati ons may be approp riate based on indivi dual patien t variab les. For compre hensiv e detail s refer to the https: //.org /clini jeffery-re source s/repo rting- and-da ta-sys tem/ti -rads FINDIN GS: Right lobe measur ements : 4.5 x 1.7 x 1.8 cm. Left lobe measur ements : 4.7 x 2.1 x 2.0 cm. Isthmu s measur ement: 0.5 cm. Thyroi d parenc hyma is genera lly: Hetero geneou s Right side lymph nodes: No suspic ious lymph nodes. Left side lymph nodes: No suspic ious lymph nodes. There are severa l other smalle r cystic and solid lesion s of the bilate ral glands , requir ing no furthe r workup or follow -up. Nodule #1: Lower pole right gland there is a 1.0 cm oval TR 4 nodule , was 0.6 cm on prior study. Nodule #2: In the upper pole of the left gland there is a stable 1.5 cm TR 3 nodule . Nodule #3: The left mid gland there is a 1.7 cm TR 3 nodule , was 1.4 cm on prior study. Nodule #4: The left mid gland anteri darby there is a 1.4 cm TR 3 nodule , was 1.0 cm PAGE 1 Signed Report (BRITNEY NUED) [facility] Name: Taylor BALDERAS [address] [employer] Phys: M[place] [address] : 1964 Age: 58 Sex: F Acct: [id number] Loc: G.US PHONE #: [phone] Exam Date: 2023 Status : REG CLI FAX #: Rad# [id number] Unit# [id number] Admit Date: 2023 EXAMS: CPT CODE: [id number] US THYROI D 53342 IMPRES LUIS ARMANDO: 1. Mild thyrom egaly 2. Mild interv al enlarg ement 1 cm TR 4 nodule lower pole right gland. Recomm end follow -up study in 12 months . 3. Stable 1.5 cm TR 3 nodule upper pole of gland. Recomm end follow -up study in 12 months . 4. Slight interv al enlarg ement 1.7 cm TR 3 nodule left mid gland. Recomm end follow -up study in 12 months 5. Mild interv al enlarg ement 1.4 cm TR 3 nodule left mid gland. Recomm end attent ion to this and follow -up study This report is genera kevin using voice recogn ition comput er softwa re. Inadve rtent errors may have occurr ed while dictat ing report . Common sense approa ch is apprec iated and do not hesita te to call for clarif icatio n when necess yvrose. Electr onical ly Signed by Dimas Bowers on 2023 at 1443 Report ed and signed by: REA Bowers M.D. CC: Stanislaw Cortes MD; Philomena saravia APRN; Lalitha Armas MD Dictat ed Date/T nathaniel: 2023 (1443) Techno logist : MAICOL FLORES REvelyneTEvelyne Transc ribed Date/T nathaniel: 2023 (1443) Transc riptio nist: DR.HAR YARELI bro Signat ure Date/T nathaniel: 2023 (1443) Printe d Date/T nathaniel: 2023 (3096) BATCH NO: N/A PAGE 2 Signed Report CC'ed Logic: Orderi ng Provid er: RASHADENRIQUE SWANSON LL Attend ing Provid er: JEREMIAH SWANSON LL Referr ing Provid er: JEREMIAH SWANSON LL Consul ting Provid er: KATERINA DOTY [facility] [address], [place], [address], 02/28/2024 19:23:32 04/20/20 24 03/15/2024 - ECHO w/spe c/col or flow [facility] Med[facility] Ce Name: Taylor BALDERAS Rafael [address] [place] [address] Drive Phys: Reese LIU, [place] [address] : 1964 Age: 58 Sex: F Acct: [id number] Loc: BECKY PHONE #: Exam Date: 2023 Status : DEP CLI FAX #: Rad# [id number] Unit# [id number] Admit Date: 2023 EXAMS: CPT CODE: [id number] ECHO W/SPEC /COLOR FLOW 02533 Reason for study: Dyspne a Left ventri cular diasto le: 5.3 Left ventri cular systol e: 3.9 Septal wall thickn ess: 1.2 Utilization Reviewer ior wall thickn ess: 1.1 Right ventri cular diasto le: 1.6 Left Atrium : 3.1 Aortic root: 3.4 TR veloci ty: 2.36 m/s Impres luis armando: 1. Normal left ventri cular chambe r size with normal left ventri cular systol ic functi on. Estima kevin ejecti on fracti on is 60-65% . There is mild concen tric hypert rophy of the left ventri bogdan. There is Dopple r eviden ce for impair ed relaxa tion of the left ventri bogdan 2. No segmen fabian wall motion abnorm alitie s 3. Normal left atrial and right atrial size 4. Normal right ventri cular size and functi on 5. Normal mitral valve, with no mitral insuff icienc y 6. Normal aortic valve with no aortic insuff icienc y 7. No perica rdial effusi on 8. Normal aortic root 9. Normal tricus pid valve, with tricus pid regurg itant jet veloci ty of 2.36 m/s implyi ng a right ventri cular systol ic pressu re of approx imatel y 33 mmHg Electr onical ly Signed by STANISLAW CORTES MD on 2023 at 1339 Report ed and signed by: STANISLAW CORTES MD PAGE 1 Signed Report (BRITNEY NUED) [facility] Medica l Ce Name: Taylor BALDERAS WIALVAREZ [employer] Phys: Reese LIU, [place] [facility] [address] : 1964 Age: 58 Sex: F Acct: [id number] Loc: BECKY PHONE #: Exam Date: 2023 Status : DEP CLI FAX #: [phone] Rad# [id number] Unit# [id number] Admit Date: 2023 EXAMS: CPT CODE: [id number] 870 ECHO W/SPEC /COLOR FLOW 07663 CC: Stanislaw Cortes MD; Lalitha Armas MD Dictat ed Date/T nathaniel: 2023 (1339) Techno logist : ROBERTO CARLOS CARLISLE Transc ribed Date/T nathaniel: 2023 (1339) Transc riptio nist: DR.LOH LISETTE Thomas onic Signat ure Date/T nathaniel: 2023 (1339) Printe d Date/T nathaniel: 2023 (1324) BATCH NO: N/A PAGE 2 Signed Report CC'ed Logic: Orderi ng Provid er: REESE DOVER Attend ing Provid er: REESE DOVER Referr ing Provid er: REESE STANISLAW Bills er: KATERINA yee [address] , [place], [address], 04/21/2024 07:38:46 Result Notes Documentation Provider Name and Address Organization Details Recorded Time Ct, Chest, W/ Contrast : [facility] Name: OWEN WAITE [address] [place] [address] Phys: [place] [address] : 1965 Age: 58 Sex: F Acct: [id number] Loc: G.CT PHONE #: Exam Date: 02/07/2024 Status: REG CLI FAX #: Rad# [id number] Unit# [id number] Admit Date: 02/07/2024 EXAMS: CPT CODE: [id number] CT CHEST W/CONTRAST [address]607 CT CHEST WITH CONTRAST, 02/07/2024: CLINICAL HISTORY: 58-year-old female with shortness of breath on exertion. History of renal cell carcinoma status post left nephrectomy and tobacco use COMPARISON: CT chest, 12/15/2019 and 08/15/2019 and thyroid ultrasound, 12/21/2019 TECHNIQUE: Multiple axial images through the chest were obtained following the intravenous administration of 75 mLs of Isovue-370. This data was used to perform coronal and sagittal reconstructions. [employer] Auto mA automated exposure control was utilized for radiation dose reduction. FINDINGS: The heart is normal in size. The thoracic aorta is normal in caliber. There is a 1 x 1.3 cm lower pretracheal lymph node, unchanged from 2019. There is no new pathologic intrathoracic lymphadenopathy. There are several left thyroid nodules, the largest measuring 1.5 cm, more prominent from the 2020 exam. There is a small sliding hiatal hernia There is a 1.6 cm bulla within the left lower lobe, unchanged. There are 2 linear areas of atelectasis versus fibrosis in the right upper lobe, new. There is a stable linear focus of fibrosis in the lateral basal segment of the right lower lobe. There are several right lung nodules as marked, measuring 6 mm or less. These are unchanged from 2019. There are calcified granulomas scattered bilaterally. There is no new pulmonary nodule or pleural fluid. The airways are patent. The patient is status post left nephrectomy. There is a 1.1 cm right renal cyst. The gallbladder is surgically absent. There are 2 subcentimeter hepatic cysts. The patient is status post left rotator cuff repair. There is no suspicious osseous lesion IMPRESSION: 1. 2 linear foci of atelectasis versus fibrosis in the right upper lobe without evidence of acute intrathoracic process 2. Several right lung nodules measure 6 mm or less. These are unchanged from 2019 and therefore benign. No follow-up is necessary PAGE 1 Signed Report (CONTINUED) [facility] Name: OWEN WAITE Pending sale to [facility] Phys: Reese LIU, [place] [address] : 1965 Age: 58 Sex: F Acct: [id number] Loc: Yuan.CT PHONE #: Exam Date: 02/07/2024 Status: REG CLI FAX #: Rad# [id number] Unit# [id number] Admit Date: 02/07/2024 EXAMS: CPT CODE: [id number] CT CHEST W/CONTRAST 35205 3. Several left thyroid nodules, measuring greater than a centimeter. Recommend thyroid ultrasound for further characterization *Recommendations for follow up/management of pulmonary nodules will be based on the Fleischner Society criteria NOTE: Any incidentally noted liver lesions equal to or less than 5 mm, cystic lesions in the kidneys less than 1 cm, and/or adrenal lesions equal to or less than 1 cm, generally are considered highly likely to be benign and no additional evaluation is recommended, unless specifically mentioned in the impression. at 1211 Reported and signed by: BRYAN VENEGAS MD CC: Stanislaw Cortes MD; Lalitha Armas MD Dictated Date/Time: 02/07/2024 (1211) Technologist: MIRA MCFARLANE Transcribed Date/Time: 02/07/2024 (1211) Control Tower Operator: Electronic Signature Date/Time: 02/07/2024 (1211) Printed Date/Time: 02/07/2024 (1214) BATCH NO: N/A PAGE 2 Signed Report CC'ed Logic: Ordering Provider: REESE DOVER Attending Provider: REESE DOVER Referring Provider: REESE DOVER Consulting Provider: KATERINA lee, [facility] & [place] 02/09/2024 11:27:23 Problems Name Problem SNOMED Code Status Onset Date Resolution Date Notes Provider Name and Address Organization Details Recorded Time Tobacco dependenc e syndrome 82151398 Active 2018 Tobacco abuse Not Available [facility] 2 23:34:06 Dyspnea 066827386 Active 2018 Not Available [facility] 2 23:34:06 Palpitati ons 57283462 Active 2018 Not Available [facility] 2 23:34:06 Hypertens bhaskar disorder 87693259 Active 2018 Hypertens ion Not Available [facility] 2 23:34:06 Chest discomfor t 595239968 Active 2018 Not Available [facility] 2 23:34:06 Angina pectoris 039051395 Active 2018 Not Available [facility] 2 23:34:05 Intermitt ent claudicat ion 28434612 Active 2018 Claudicat ion Not Available [facility] 2 23:34:06 History of nephrecto my 86881420136 104 Active 2018 Not Available [facility] 2 23:34:05 Chronic obstructi ve pulmonary disease 36635880 Active 2018 Not Available [facility] 2 23:34:06 History of primary malignant neoplasm of kidney 294951424 Active 2018 Not Available [facility] 2 23:34:06 Centriaci reagan emphysema 98079757 Active 2019 Centrilob ular emphysema Not Available [facility] 2 23:34:06 Pulmonary emphysema 41412546 Active 2021 Calderon Vaughan MD [address] [place] [address], [address] , [facility] [place] & [place] 2 03:31:51 Near syncope 750050618 Active 2022 Stanislaw Cortes MD [facility] [employer]unct[employer] [address] [place] [address], [address] , [facility] - [facility] [place] & [place] 3 09:34:03 Tight chest 05942398 Active 2022 Stanislaw Cortes MD [facility] [employer] [address] [place] [address], [address] , [place] - [facility] [place] & [place] 3 09:34:08 Dyspnea on exertion 78745413 Active 2022 Stanislaw Cortes MD [facility] [employer] [address] [place] [address], [address] , [facility] - [facility] [place] & [place] 3 09:34:13 Dizziness 076898941 Active 2022 Stanislaw Cortes MD [facility] [employer] [address] [place] [address], [phone] , [facility] - [facility] [place] & [place] 3 09:35:00 Edema 726452122 Active 2022 Stanislaw Cortes MD [facility] [employer] [address] [place] [address], [address] , [facility] - [facility] [place] & [place] 3 09:35:16 Hyperlipi demia 84908374 Active 2022 Stanislaw Cortes MD [facility] [employer] [address] [place] [address], [address] , [place] - [facility] [place] & [place] 3 09:35:25 Tachycard ia 3433765 Active 2022 Stanislaw Cortes MD [facility] [employer] [address] [place] [address], [address] , [place] - [facility] [place] & [place] 3 09:31:16 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 779114022 Active 2022 Stanislaw Cortes MD [facility] [employer],[address], [place], [address] , [place] - [facility] & [place] 3 11:48:16 Cardiovas cular stress test abnormal 582819080 Active 2022 Genaro Jerome NP [facility] [employer] [facility],[address], [place], [address] , [place] - [facility] & [place] 3 12:51:24 Left subclavia n steal syndrome 66136110918 203946 Active 2022 Genaro Jerome NP [facility] [employer] [facility],[address], [place], [address] , [place] - [facility] & [place] 3 13:20:31 Edema of lower extremity 182594023 Active 2023 Stanislaw Cortes MD [facility] [employer] [facility],[address], [place], [address] , [place] - [facility] & [place] 4 10:57:12 Thyroid nodule 790821250 Active 2023 Stanislaw Cortes MD [facility] [employer] [facility],[address], [place], [address] , [place] - [facility] & [place] 4 10:53:33 Problem Notes None recorded. Procedures Surgical History Date Name Laterality Status Provider Name and Address Organization Details Recorded Time 08/24/20 23 LEFT HEART CATHETERIZATION (SURG) completed Ofelia Cortés [place] - [facility] - [place] & [place] 08/27/2023 15:16:39 11/09/19 19 Cardiac Catheterization completed Ofelia [place] - [facility] & [place] 06/23/2023 09:52:30 09/06/19 10 Cancer Surgery completed Domi [place] - [facility] - [place] & [place] 09/02/2023 09:53:04 excision of left kidney completed Briseyda [place] - [facility] & [place] 07/05/2023 09:19:39 cholecystectomy completed Briseyda Cruz [place] - [facility] - [place] & [place] 07/05/2023 09:19:46 hysterectomy completed Briseyda YORK [facility] & [place] 07/05/2023 09:19:54 complete repair of rotator cuff [facility] [place] 07/05/2023 09:20:04 Imaging Results None recorded. Procedure Notes None recorded. Medical Equipment None Reported. Allergies Allergen ID Allergen Name Allergen Category Reaction Reaction Severity Criticality Documentation Date Start Date Code Code System Note Provider Name and Address Organization Details Recorded Time 011477 Wellbutri n medicatio n Not available Not available Not available 09/02/2023 97325 RxNorm sever e mood swing s Crystal Earlywine rosa, JAYLEN Chavez [facility] & [place] 09:54:19 1880 erythromy janis medicatio n Not available Not available Not available 05/13/2022 4053 RxNorm React ion: Unkno wn, sever ity: Unkno wn Not Available [facility] 22:21:49 Medications Name Sig Start Date Stop Date Status Note LastModified by Organization Details LastModified Time cyclobenzap rine 10 mg tablet 1 tablet as needed Orally bid 07/05 completed Not Available Not Available Not Available bupropion HCl SR 150 mg tablet,12 hr sustained-r elease 01/24 completed Not Available Not Available Not Available gabapentin 600 mg tablet Take 1 tablet 4 times a day by oral route for 30 days. active Not Available Not Available No t Available hydrocodone 5 mg-acetamin ophen 325 mg tablet 07/05 completed Not Available Not Available Not Available gabapentin 400 mg capsule 09/02 completed Not Available Not Available Not Available sertraline 100 mg tablet 07/05 completed Not Available Not Available Not Available sulfamethox azole 800 mg-trimetho prim 160 mg tablet 05/09 completed Not Available Not Available Not Available omeprazole 40 mg capsule,del ayed release Take 1 capsule every day by oral route for 90 days. active Not Available Not Available No t Available alprazolam 0.5 mg tablet Take 1 tablet by oral route for 1 day. 01/24 completed Not Available Not Available Not Available methocarbam ol 750 mg tablet 07/05 completed Not Available Not Available Not Available hydrocodone 7.5 mg-acetamin ophen 325 mg tablet Take 1 tablet every 6-8 hours by oral route as needed for 30 days. active Not Available Not Available No t Available ferrous sulfate 325 mg (65 mg iron) tablet Take 1 tablet every day by oral route for 30 days. active Not Available Not Available No t Available fluorometho lone 0.1 % eye drops,suspe nsion 01/24 completed Not Available Not Available Not Available diclofenac sodium 75 mg tablet,cam yed release 08/05 completed Not Available Not Available Not Available furosemide 20 mg tablet Take 1 tablet every day by oral route. active Not Available Not Available No t Available alprazolam 2 mg tablet 07/05 completed Not Available Not Available Not Available metoprolol succinate ER 25 mg tablet,exte nded release 24 hr TAKE 1 TABLET BY MOUTH DAILY. 2024 active Not Available Not Available Not Avai lable methylpredn isolone 4 mg tablets in a dose pack 01/24 completed Not Available Not Available Not Available cefdinir 300 mg capsule 01/24 completed Not Available Not Available Not Available diazepam 5 mg tablet Take 1 tablet every day by oral route for 30 days. active Not Available Not Available No t Available Ventolin HFA 90 mcg/actuati on aerosol inhaler 1 puff as needed Inhalatio n every 4 hrs active Not Available Not Available No t Available neomycin-po lymyxin-hyd rocort 3.5 mg-10,000 unit/mL-1 % ear drops,susp 07/05 completed Not Available Not Available Not Available escitalopra m 10 mg tablet Take 1 tablet every day by oral route for 90 days. active Not Available Not Available No t Available olopatadine 0.2 % eye drops 01/24 completed Not Available Not Available Not Available PreserVisio n AREDS-2 250 mg-90 mg-40 mg-1 mg capsule Take 1 capsule every day by oral route for 30 days. active Not Available Not Available No t Available Vitals Date Recorded Body height Body mass index (BMI) Body weight Oxygen saturation Oxygen saturation in Arterial blood by Pulse oximetry Heart rate Systolic And Diastolic Provider Name and Address Organization Details Last Updated DateTime 4 160.02 cm 36 kg/m2 46052.9 7 g 95 % 95 % 64 /min 116/80 mm[Hg] Silvia [place] - [facility] [place] & [place] 4 10:40:58 Date Recorded Body height Oxygen saturation Oxygen saturation in Arterial blood by Pulse oximetry Heart rate Body mass index (BMI) Body weight Systolic And Diastolic Provider Name and Address Organization Details Last Updated DateTime 4 160.02 cm 95 % 95 % 55 /min 35.1 kg/m2 03043.7 3 g 116/84 mm[Hg] Steffi [place] - [facility] [place] & [place] 4 10:27:54 Date Recorded Body height Body mass index (BMI) Body weight Oxygen saturation Oxygen saturation in Arterial blood by Pulse oximetry Heart rate Systolic And Diastolic Provider Name and Address Organization Details Last Updated DateTime 4 160.02 cm 34.7 kg/m2 25043.3 9 g 93 % 93 % 72 /min 106/70 mm[Hg] Silvia Jose [place] - [facility] [place] & [place] 4 11:13:13 Date Recorded Body height Body mass index (BMI) Body weight Oxygen saturation Oxygen saturation in Arterial blood by Pulse oximetry Heart rate Systolic And Diastolic Systolic And Diastolic Provider Name and Address Organization Details Last Updated DateTime 3 160.02 cm 37.1 kg/m2 46616.9 6 g 95 % 95 % 74 /min 118/71 mm[Hg] 117/74 mm[Hg] Silvia Jose bowers JAYLEN - [facility] [place] & [place] 3 13:22:41 Date Recorded Body height Body mass index (BMI) Body weight Heart rate Respiratory rate Systolic And Diastolic Provider Name and Address Organization Details Last Updated DateTime 3 160.02 cm 37 kg/m2 43581.8 1 g 82 /min 14 /min 104/80 mm[Hg] Domi Jalenjonijennifer [place] - [facility] [place] & [place] 3 09:52:10 Social History Question Answer Notes LastModified by Organizat ion Details LastModified Time Tobacco Smoking Status Current Every Day Smoker Not Available [employer] 05/13/2022 23:33:22 What Was The Date Of Your Most Recent Tobacco Screening? 07/05/2023 Information not available 09/02/2023 Are You Passively Exposed To Smoke? Yes Information not available 09/02/2023 How Much Tobacco Do You Smoke? 2 PPD Information not available 09/02/2023 How Many Years Have You Smoked Tobacco? 30 Information not available 09/02/2023 Sex: Female Functional Status Question Answer Note LastModified by Organizat ion Details LastModified Time Do you use any illicit or recreational drugs? No Information not available 09/02/2023 What is your level of alcohol consumption? None Information not available 09/02/2023 What is your exercise level? None Information not available 09/02/2023 Mental Status None recorded. Family History Nothing Reported. Medical History Condition Response Weight loss or gain Y COPD Y Chest Pain Y Hyperlipidemia Y Cancer Y Shortness of Breath Y Dizziness or Fainting Y Aneurysm Y Arrhythmia Y Hypertension Y Kidney Disease Y Gynecological HistoryNo gynecological history recorded. Obstetrics History GPAL:G 0 P 0 0 0 0 Past Encounters Encounter ID Performer Location Encounter Start Date Encounter Closed Date Diagnosis/Indication Diagnosis SNOMED-CT Code Diagnosis ICD10 Code Diagnosis IMO Codes Diagnosis Note [id number] Stanislaw Cortes MD [address] [place] [phone] 07/05/2023 08:31:06 07/05/2023 09:35:54 Orthostatic hypotension 23058355 I95.1 Near syncope 760953768 R 55 Tight chest 95182925 R07 .89 Dyspnea on exertion 6084 5006 R06.09 Dizziness 292430211 R42 Edema 127601566 R60.9 Hyperlipidemia 43864913 E78.5 [id number] Stanislaw Cortes MD [address] [place] [place] [id number] 6 08/05/2023 08:58:32 08/05/2023 09:28:08 Tachycardia 9815130 R00.0 Chest discomfort 6874489 09 R07.89 Chronic ob structive pulmonary disease 82443106 J44.9 Dyspnea 601960438 R06.02 Hyperlipidemia 09351652 E78.5 Re-entrant atrioventricular node tachycardia 644147849 I49.8 [id number] Genaro Jerome NP [address] [place] [phone] 08/17/2023 12:57:36 08/17/2023 13:19:51 Tachycardia 0840846 R00.0 Dyspnea 568427901 R06.02 Hyperlipidemia 09588063 E78.5 Re-entrant atrioventricular node tachycardia 864959501 I49.8 Cardiovasc ular stress test abnormal 914520169 R94.39 Left subcl julio steal syndrome 0967875400 6231181 G45.8 Angina pectoris 74003994 0 I20.9 [id number] Stanislaw Cortes MD [address] [place] [id number] 09/02/2023 09:32:51 09/02/2023 10:16:23 Chest discomfort 847582182 R07.89 Centriacin ar emphysema 53689762 J43.2 Dyspnea on exertion 6084 5006 R06.09 Hyperlipidemia 35427600 E78.5 Palpitations 55302735 R0 0.2 Tobacco de pendence syndrome 29283864 Z72.0 Tight chest 10978924 R07 .89 [id number] Stanislaw Cortes MD [address] [place] [id number] 01/25/2024 10:24:55 01/25/2024 10:56:20 Dyspnea on exertion 69132160 R06.09 Chronic ob structive pulmonary disease 07384043 J44.9 Tobacco de pendence syndrome 10481455 Z72.0 Edema of l ower extremity 789666317 R60.0 Hyperlipidemia 55103210 E78.5 Centriacin ar emphysema 73525697 J43.2 [id number] Stanislaw Cortes MD [address]IK [address] [place] [id number] 03/07/2024 10:01:44 03/07/2024 10:52:31 Dyspnea on exertion 11602756 R06.09 Chronic ob structive pulmonary disease 88818802 J44.9 Tobacco de pendence syndrome 80906373 Z72.0 Edema of l ower extremity 926220403 R60.0 Hyperlipidemia 34972568 E78.5 Centriacin ar emphysema 33606840 J43.2 [id number] Stanislaw Cortes MD [facility] [address] [place] [address] [address] [place] [address] 05/09/2024 10:58:58 05/09/2024 11:22:15 Dyspnea on exertion 48456737 R06.09 Chronic ob structive pulmonary disease 65282758 J44.9 Tobacco de pendence syndrome 84602747 Z72.0 Edema of l ower extremity 606770509 R60.0 Resolved since being on Lasix Hyperlipidemia 86193315 E78.5 Centriacin ar emphysema 22842635 J43.2 Health Concerns Section Related Observation LastModified by Organization Detai ls LastModified Time None Recorded Concern Status LastModified by Organization Details LastModified Time None Recorded Advance Directives Directive None Recorded Payers Insurance Date Sequence Insurance Name Policy Number Policy Hook Covered Member ID Hook Member ID Guarantor Name 08/06/2024 1 [facility] (MEDICARE REPLACEMENT/ ADVANTAGE - HMO) Owen Waite [id number] Owen Waite Notes Date Note Type Note Provider Name and Address Organization Details Recorded Time 08/17/2023 text/html Patient here to go over test results. She had been having episodes of class 3 to class 4 angina., she is still having symptoms. Genaro Jerome NP [address], [place], [address], [facility] 08/17/2023 15:38:01 09/02/2023 text/html Doing well. No chest pain pressure or tightness. No shortness of breath. Post cardiac catheterization. We looked at her coronaries as well as her subclavian artery. She is here for follow-up. Chest pain and shortness of breath has essentially resolved. She always has some chronic dyspnea but no shortness of breath at rest and no shortness of breath with daily activity Stanislaw Cortes MD [address] [place] [address] Drive,[address], [place], [address], [facility] 09/02/2023 10:44:42 01/25/2024 text/html Patient has had increasing shortness of breath and now she is noticed some mild edema. No chest pain pressure or tightness. Stanislaw Cortes MD [address] [place] [address],[address], [place], [address], [place] - [facility] [place] [facility] [place] 01/25/2024 11:07:50 03/07/2024 text/html Doing well. No chest pain pressure or tightness. Weight is actually down 12 lb since starting the Lasix. Shortness of breath is improved. Here today to go over test results Stanislaw Cortes MD [address] [place] [address],[address], [place], [address], [facility] - [facility] [place] [facility] [place] 03/07/2024 10:57:18 05/09/2024 text/html doing well. No chest pain pressure or tightness. Still has shortness of breath but overall improved. Weight is down significantly since the diuretic. She still continues to lose weight. She feels well. I will see her back in 4 months. Meds and chart reviewed in full today Stanislaw Cortes MD [address] [place] [address],[address], [place], [address], [place] - [facility] [place] [facility] [place] 05/09/2024 12:06:40 OBGyn Episode No OBEpisode recorded.
== END 2025-06-27 23:59 | disposition home or self-care (01) ==
LOC: RAD 19:31
PROVIDERS: PCP Family Medicine; Visit Provider Family Medicine
DX: S99.912A Unspecified injury of left ankle, initial encounter (principal); R93.6 Abnormal findings on diagnostic imaging of limbs; W19.XXXA Unspecified fall, initial encounter
CPT/HCPCS: 73600

== ENCOUNTER 2025-07-23 12:58 | Outpatient (CLI) | payer MEDICARE, SELFPAY ==
--- NOTE | 2025-07-23 13:15 | XR_ITS ---
FINAL REPORT CLINICAL HISTORY: RM - Osteoporosis COMPARISON: None FINDINGS: Using L1-4, the bone mineral density of the spine is 0.810 g/cm2, corresponding to T-score of -2.2. Using the left hip, the bone mineral density of the femoral neck is 0.542 g/cm2, corresponding to a T-score of -2.8. Using the right hip, the bone mineral density of the femoral neck is 0.570 g/cm2, corresponding to a T-score of -2.5. NOTE: T-score: Standard deviation compared with peak bone mass of young adult mean. *Following the recommendations of the International Society of Bone densitometry, classification of hip BMD is based on the lower of two T-scores; total hip or femoral neck. IMPRESSION: Diminished bone mineral density of the bilateral hips, consistent with osteoporosis. Diminished bone mineral density of the lumbar spine consistent with osteopenia. Reviewed, Interpreted and Dictated by Elpidio Posada MD Transcribed by Moraima Bah Authenticated and [facility]
== END 2025-07-23 23:59 | disposition home or self-care (01) ==
LOC: RAD 12:58
PROVIDERS: PCP Family Medicine; Visit Provider Family Medicine
DX: M81.0 Age-related osteoporosis without current pathological fracture (principal)
CPT/HCPCS: 77080